=== PATIENT | male | born 1955 | race Caucasian/White ===

== ENCOUNTER 2024-01-21 08:43 | Inpatient (IN) ==
--- NOTE | 2024-01-21 08:53 | Emergency Department Note ---
Impression & Plan Diverticulitis of intestine with perforation and abscess, Lyme disease ED Provider Note Provider: Paulo Alfred MD DATE OF SERVICE: 01/21/2024 CHIEF COMPLAINT: Abdominal pain/back pain, fevers, tiredness HISTORY OF PRESENT ILLNESS: Patient is a 68-year-old gentleman history of hypertension hyperlipidemia presenting here today reporting over the past 2 weeks has been more tired. Yesterday developed some pain in the right lower quadrant of his abdomen worsening since yesterday. Has been having some mild or more chronic pain in his back as well as a low-grade fever and a mild headache on and off a week or 2. Urinary frequency overnight. No dysuria/burning. No trauma reported or syncope. Denies nausea vomiting or diarrhea. No significant chest pain or shortness of breath or URI symptoms otherwise reported. No rashes reported but has been out in the [place] around ticks. No leg swelling. No recent sick contact or travel. No history of similar abdominal discomfort. No history of abdominal surgeries. PAST MEDICAL HISTORY: As noted above MEDICATIONS: Reviewed home medication SOCIAL HISTORY: Non-smoker PHYSICAL EXAM: GENERAL: alert and oriented in no acute distress on stretcher Head: normocephalic and atraumatic EYES: No injection, discharge or icterus. NECK: Trachea midline. Supple with good range of motion ENT: Mucous membranes pink and moist. LUNGS: Airway patent. No retractions. Breath sounds clear with good air entry bilaterally. HEART: Regular rate and rhythm. No chest wall tenderness ABDOMEN: Soft with some localized right lower quadrant tenderness. No right upper tenderness or right flank tenderness or left-sided abdominal tenderness. SKIN: Acyanotic, warm, dry, without rashes EXTREMITIES: Without swelling, tenderness or deformity NEUROLOGICAL: No focal deficits. No aphasia. No facial droop or slurred speech. Ambulatory. EK bpm normal sinus rhythm. No PVC or PAC. No acute ST segment elevation or depression with a QTc of 444 CONTINUOUS CARDIAC MONITORING: was ordered and showed a heart rate of 70s to 80s bpm in normal sinus rhythm Patient's laboratory studies and imaging reviewed. Differential includes Appendicitis, testicular torsion, infections, diverticulitis, UTI, obstruction, mesenteric ischemia, aortic pathology, inflammatory bowel disease, renal colic, PUD, pancreatitis, biliary pathology, hernia, volvulus, constipation, as well as other pathologies. IMPRESSION/MEDICAL DECISION MAKING: Patient well-appearing. No neurological deficits on exam. Some urinary frequency developing overnight that is new with worsening pain just since yesterday in the right lower quadrant. Nontender to the left side or in the right upper quadrant or in the flank. Question possible urinary source was appendicitis or other GI issue. Does not seem severe and left flank like a kidney stone. Not having nausea vomiting or diarrhea. Does have outdoor tick exposures and will complete Lyme and tickborne testing per 's request which seems reasonable. Does not appear meningitic. Blood work here without significant anemia or thrombocytopenia but a leukocytosis of 16. No significant lecture light abnormalities signs of renal dysfunction. No evidence of hepatitis. Troponin normal. Doubt ACS. Negative blood smear for anaplasmosis. Urinalysis negative for signs of infection or blood. CT abdomen pelvis concerning for acute diverticulitis with small pneumoperitoneum and sub-2 cm abscess not amenable to drainage. Discussed with the patient. Does not have a reported history of diverticulitis to his knowledge. Will cover with Zosyn for this and given the possibility of Lyme disease covered with a dose of doxycycline discussion with pharmacist. Discussed with the surgical team here will evaluate as well as the hospitalist team and will bring the patient in the hospital. Patient well-appearing and not septic appearing and not peritoneal. DIAGNOSIS: Perforated diverticulitis with abscess, positive Lyme's test DISPOSITION: Hospitalist will evaluate Patient was agreeable with this plan. Past Med/Surg History Problem List (Updated 01/21/24 @ 14:47 by Paulo Alfred M.D.) Diverticulitis of intestine with perforation and abscess (Acute) Hyperlipidemia Lyme disease (Acute) Acute diverticulitis of intestine HTN (hypertension) BPH (benign prostatic hyperplasia) Medical History (Updated 01/21/24 @ 14:47 by Paulo Alfred M.D.) Osteoarthritis Surgical History History of colonoscopy History of tooth extraction wisdom teeth History of tonsillectomy Hx of detached retina repair Left History of bilateral cataract extraction Family History (Updated 01/21/24 @ 13:57 by Annita Diallo PA-C) Other Hypertension Social History Smoking Status: Never smoker Second Hand Exposure: Yes (father smoked); Do You Dip or Chew Tobacco: No; Hx Alcohol Use: Yes Alcohol type: beer and wine Hx Substance Use: No Preferred Language: Serbian Communication Ability: Effective 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 Beliefs That Will Affect Care: None Current Living Situation: Spouse Feels Safe at Home: Yes Assistive Devices: Glasses Allergies Allergies Allergy/AdvReac Type Severity Reaction Status Date / Time No Known Allergies Allergy Verified 01/21/24 09:57 Home Meds Home Medications Medication Instructions Recorded Confirmed fluticasone propionate 50 2 spray intranasal QAM 06/27/18 01/21/24 mcg/actuation nasal spray,suspension (Flonase Allergy Relief) sildenafil 50 mg tablet (Viagra) 50 mg PO DAILY PRN Sexual Activity 06/27/18 01/21/24 brimonidine 0.2 %-timolol 0.5 % 1 drp OPB BID 01/21/24 01/21/24 eye drops finasteride 5 mg tablet 5 mg PO DAILY 01/21/24 01/21/24 latanoprost 0.005 % eye drops 1 drp OPB HS 01/21/24 01/21/24 losartan 25 mg tablet 25 mg PO DAILY 01/21/24 01/21/24 rosuvastatin 5 mg tablet 5 mg PO DAILY 01/21/24 01/21/24 tamsulosin 0.4 mg capsule 0.8 mg PO QAM 01/21/24 01/21/24 Results & Data (ED) Vital Signs Vital Signs - 24 hr 01/21/24 08:46 01/21/24 09:22 01/21/24 09:23 Temperature 36.4 C L Temperature Source Temporal Artery Scan Pulse Rate 86 77 Pulse Rate [Apical] 78 Respiratory Rate 18 18 18 Respiratory Effort / Characteristics Non-Labored Spontaneous Respiratory Depth Normal Blood Pressure 157/92 H Blood Pressure [Right Arm] 142/88 H Blood Pressure Mean 113 Blood Pressure Mean [Right Arm] 106 Blood Pressure Position [Right Arm] Semi-fowlers Pulse Oximetry 98 96 97 Oxygen Delivery Method Room Air Room Air Room Air Sepsis Recent Fever Within 48 Hours Yes Sepsis New/Unexplained Change in Mental Status No Sepsis Action Taken by Nursing No Action Required 01/21/24 09:24 01/21/24 11:00 01/21/24 13:00 Temperature Temperature Source Pulse Rate 81 Pulse Rate [Apical] 76 78 Respiratory Rate 17 17 Respiratory Effort / Characteristics Non-Labored Spontaneous Non-Labored Respiratory Depth Normal Normal Blood Pressure Blood Pressure [Right Arm] 180/104 H 169/95 H Blood Pressure Mean Blood Pressure Mean [Right Arm] 129 119 Blood Pressure Position [Right Arm] Semi-fowlers Semi-fowlers Pulse Oximetry 96 94 Oxygen Delivery Method Room Air Room Air Sepsis Recent Fever Within 48 Hours Sepsis New/Unexplained Change in Mental Status Sepsis Action Taken by Nursing Laboratory Data 01/21/24 09:17 01/21/24 09:17 Lab Results 01/21/24 01/21/24 01/21/24 Range/Units 09:17 10:16 10:19 WBC 16.02 H (4.8-10.8) K/ul RBC 4.72 (4.70-6.10) M/uL Hgb 13.6 L (14.0-18.0) g/dl Hct 42.1 (42.0-52.0) % MCV 89.2 (80.0-100.0) fL MCH 28.8 (25.0-34.0) pg MCHC 32.3 (32.0-36.0) g/dL RDW Std Deviation 45.8 (36.4-46.3) fL RDW Coeff of Harman 14.1 (11.5-14.5) % Plt Count 435 H (130-400) K/uL MPV 9.1 L (9.4-12.4) fL Immature Gran % (Auto) 0.7 % Neut % (Auto) 85.4 % Lymph % (Auto) 8.9 % Gibson % (Auto) 4.6 % Eos % (Auto) 0.2 % Baso % (Auto) 0.2 % Neut # (Auto) 13.68 H (1.40-6.50) K/uL Lymph # (Auto) 1.42 (1.20-3.40) K/uL Gibson # (Auto) 0.73 H (0.11-0.59) K/uL Eos # (Auto) 0.03 (0.00-0.50) K/uL Baso # (Auto) 0.04 (0.00-0.20) K/uL Immature Gran # (Auto) 0.12 (0.01-0.20) K/uL Sodium 139 (136-145) mmol/L Potassium 3.8 (3.5-5.1) mmol/L Chloride 105 (98-107) mmol/L Carbon Dioxide 28 (21-32) mmol/L Anion Gap 6 (3-11) BUN 12 (6-23) mg/dl Creatinine 1.01 (0.6-1.4) mg/dl Est Cr Clr Drug Dosing 66.6 ml/min Est GFR ( Amer) 86.9 ml/min Est GFR (Non-Af Amer) 75.0 ml/min BUN/Creatinine Ratio 11.9 (10-20) Glucose 106 H (70-99(Fasting)) mg/dl Calcium 8.9 (8.6-10.3) mg/dl Magnesium 1.9 (1.7-2.4) mg/dl Total Bilirubin 1.5 H (0.2-1.0) mg/dl AST 20 (13-39) U/L ALT 28 (7-52) U/L Alkaline Phosphatase 57 (34-104) U/L Troponin I High Sens 5.4 (0-20) pg/ml Total Protein 6.7 (6.0-8.3) gm/dl Albumin 4.1 (3.4-5.0) gm/dl Globulin 2.6 (2.5-4.0) gm/dl Albumin/Globulin Ratio 1.6 (0.9-2) TSH 1.457 (0.300-4.500) uIu/ml Urine Color Yellow Urine Appearance Clear (Clear) Urine pH 8.5 H (4.5-7.5) Ur Specific [place] 1.016 (1.000-1.030) Urine Protein Negative (Negative) Urine Glucose (UA) Negative (Negative) Urine Ketones Negative (Negative) Urine Blood Negative (Negative) Urine Nitrite Negative (Negative) Urine Bilirubin Negative (Negative) Urine Urobilinogen Negative (Negative) Ur Leukocyte Esterase Negative (Negative) Anaplasma Smear See Comment Babesia Smear See Comment Lyme Disease Screen Positive H (Negative) Lyme Disease IgG Ab Positive H (Negative) Lyme Disease IgM Ab Positive H (Negative) SARS-CoV-2, RNA, NAAT NEGATIVE (NEGATIVE) Administered Medications Discontinued Medications Sodium Chloride (Nss) 500 mls @ 999 mls/hr IV .Q31M DELL Stop: 01/21/24 09:30 Last Infusion: 01/21/24 09:57 Dose: Infused Documented By: Admin: 01/21/24 09:13 Dose: 999 mls/hr Documented By: ONEIL Piperacillin Sod/Tazobactam Sod (Zosyn) 4.5 gm in 100 mls @ 200 mls/hr IV NOW ONE Stop: 01/21/24 12:35 Last Infusion: 01/21/24 13:24 Dose: Infused Documented By: Admin: 01/21/24 12:24 Dose: 200 mls/hr Documented By: ONEIL Ioversol (Optiray 320 100ml) 94 ml IV ONCE ONE Stop: 01/21/24 10:52 Last Admin: 01/21/24 10:51 Dose: 94 ml Documented By: EDK Imaging Data Radiologist's Impression: Abdomen/Pelvis CT 01/21/24 08:[address] WITH IV CONTRAST CT DOSE: 1230.06 mGy.cm HISTORY: RLQ pain, urinary symptoms, fatigue TECHNIQUE: Multiaxial CT images of the abdomen and pelvis were performed following the use of intravenous contrast. A dose lowering technique was utilized adhering to the principles of ALARA. COMPARISON STUDY: None. FINDINGS: There are trace bilateral pleural effusions. Bibasilar linear densities favor subsegmental atelectasis. There are few punctate foci of pneumoperitoneum within the left subdiaphragmatic location. Therefore, this is consistent with a bowel perforation. This is secondary to the acute diverticulitis at the mid sigmoid colon. This is demonstrated by focal thickening within the mid sigmoid colon with pericolonic fat stranding and a 1.8 cm pericolonic abscess best seen image 228. There is a punctate focus of extraluminal gas also adjacent to the mid sigmoid colon consistent with the area of perforation. No evidence for bowel obstruction. Normal appendix. Small hiatus hernia. Multiple scattered hypodense lesions seen throughout the liver measuring approximately 4.7 cm. These likely represent cysts. The spleen, adrenal glands, pancreas, and gallbladder are unremarkable. There are few small bilateral renal hypodense lesions with the majority of these measure subcentimeter in short axis diameter. Therefore, these are detected too small to characterize but statistically represent cysts. There is a punctate nonobstructing stone within the left kidney. No ureteral stones. No hydronephrosis. 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 The main portal vein is patent. Calcified plaque within the normal caliber abdominal aorta. No retroperitoneal or pelvic lymphadenopathy. No pelvic free fluid. The prostate gland is mildly enlarged. Normal bladder. IMPRESSION: 1. Perforated acute sigmoid diverticulitis demonstrated by trace pneumoperitoneum. There is an associated 1.8 cm pericolonic abscess at the mid sigmoid colon. This is not amenable to percutaneous drainage due to its small size. Surgical consultation recommended. 2. Trace bilateral pleural effusions. 3. Left-sided nephrolithiasis. No hydronephrosis. 4. 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 5. Additional findings as described above. ACT 112: Negative or not required by law. Electronically signed by: Stan Romero M.D. 01/21/2024 11:52 AM Discharge Plan Visit Data Chief Complaint: Illness Stated Complaint: side and back pain, fever ED Provider: Paulo Alfred Discharge Problem: Diverticulitis of intestine with perforation and abscess, Lyme disease Patient Disposition: Being Evaluated by Hospitalist Forms Stand Alone Forms: [employer] Prescriptions Prescriptions: No Action sildenafil [Viagra] 50 mg Tablet 50 mg PO DAILY PRN (Reason: Sexual Activity) fluticasone propionate [Flonase Allergy Relief] 50 mcg/actuation [place],Suspension 2 spray INTRANASAL QAM latanoprost 0.005 % drops 1 drp OPB HS tamsulosin 0.4 mg capsule 0.8 mg PO QAM losartan 25 mg tablet 25 mg PO DAILY rosuvastatin 5 mg tablet 5 mg PO DAILY brimonidine-timolol 0.2-0.5 % drops 1 drp OPB BID finasteride 5 mg tablet 5 mg PO DAILY Referrals Referrals: Marko Ennis MD [Primary Care Provider] - Discharge Problem: Diverticulitis of intestine with perforation and abscess Qualifiers: Diverticulitis site: large intestine Diverticulitis bleeding: without bleeding Qualified Code(s): K57.20 - Diverticulitis of large intestine with perforation and abscess without bleeding
[2024-01-21] MEDS: SODIUM CHLORIDE 0.9% 500 ML IV SCH (09:13)
[2024-01-21 09:40] LABS: Basophils # (auto) 0.04 K/uL (0.00-0.20); Basophils % (auto) 0.2 %; Eosinophils # (auto) 0.03 K/uL (0.00-0.50); Eosinophils % (auto) 0.2 %; Hematocrit (blood only) 42.1 % (42.0-52.0); Hemoglobin 13.6 g/dl (14.0-18.0); Immature Granulocytes # (auto) 0.12 K/uL (0.01-0.20); Immature Granulocytes % (auto) 0.7 %; Lymphocytes # (auto) 1.42 K/uL (1.20-3.40); Lymphocytes % (auto) 8.9 %; Mean Corpuscular Hemoglobin 28.8 pg (25.0-34.0); Mean Corpuscular Hgb Conc 32.3 g/dL (32.0-36.0); Mean Corpuscular Volume 89.2 fL (80.0-100.0); Mean Platelet Volume 9.1 fL (9.4-12.4); Monocytes # (auto) 0.73 K/uL (0.11-0.59); Monocytes % (auto) 4.6 %; Neutrophils # (auto) 13.68 K/uL (1.40-6.50); Neutrophils % (auto) 85.4 %; Platelet Count 435 K/uL (130-400); RDW Coefficient of Variation 14.1 % (11.5-14.5); RDW Standard Deviation 45.8 fL (36.4-46.3); Red Blood Count 4.72 M/uL (4.70-6.10); White Blood Count 16.02 K/ul (4.8-10.8)
[2024-01-21 09:57] LABS: Albumin Globulin Ratio 1.6 (0.9-2); Albumin Level 4.1 gm/dl (3.4-5.0); BUN Creatinine Ratio 11.9 (10-20); Bilirubin,Total 1.5 mg/dl (0.2-1.0); Calcium 8.9 mg/dl (8.6-10.3); Creatinine Clr Calc Pharmacy 66.6 ml/min; Est GFR (African American) 86.9 ml/min; Globulin 2.6 gm/dl (2.5-4.0); Magnesium 1.9 mg/dl (1.7-2.4); Potassium 3.8 mmol/L (3.5-5.1); Total Protein 6.7 gm/dl (6.0-8.3)
[2024-01-21 10:03] LABS: Troponin I High Sensitivity 5.4 pg/ml (0-20)
[2024-01-21 10:11] LABS: Thyroid Stimulating Hormone 1.457 uIu/ml (0.300-4.500)
[2024-01-21 10:25] LABS: Appearance Urine Clear (Clear); Bilirubin Urine Negative (Negative); Blood Urine Negative (Negative); Color Urine Yellow; Glucose Urine UA Negative (Negative); Ketones Urine Negative (Negative); Leukocyte Esterase Urine Negative (Negative); Nitrite Urine Negative (Negative); Protein Urine Negative (Negative); Specific Gravity Urine 1.016 (1.000-1.030); Urobilinogen Urine Negative (Negative); pH Urine 8.5 (4.5-7.5)
[2024-01-21 10:34] LABS: Lyme Screen Rflx Confirmation Positive (Negative)
[2024-01-21] MEDS: OPTIRAY 320 100ml IV ONE (10:51)
[2024-01-21 11:08] LABS: Lyme Ab IgG 2nd Tier Confirm Positive (Negative); Lyme Ab IgM 2nd Tier Confirm Positive (Negative)
--- NOTE | 2024-01-21 11:55 | CT Scan Report ---
ABDOMEN AND PELVIS CT WITH IV CONTRAST CT DOSE: 1230.06 mGy.cm HISTORY: RLQ pain, urinary symptoms, fatigue TECHNIQUE: Multiaxial CT images of the abdomen and pelvis were performed following the use of intrave nous contrast. A dose lowering technique was utilized adhering to the principles of ALARA. COMPARISON STUDY: None. FINDINGS: There are trace bilateral pleural effusions. Bibasilar linear densities favor subsegmental atelectasis. There are few punctate foci of pneumoperitoneum within the left subdiaphragmatic locatio n. Therefore, this is consistent with a bowel perforation. This is secondary to the acute diverticuli tis at the mid sigmoid colon. This is demonstrated by focal thickening within the mid sigmoid colon w ith pericolonic fat stranding and a 1.8 cm pericolonic abscess best seen image 228. There is a puncta te focus of extraluminal gas also adjacent to the mid sigmoid colon consistent with the area of perfo ration. No evidence for bowel obstruction. Normal appendix. Small hiatus hernia. Multiple scattered h ypodense lesions seen throughout the liver measuring approximately 4.7 cm. These likely represent cys ts. The spleen, adrenal glands, pancreas, and gallbladder are unremarkable. There are few small bilat eral renal hypodense lesions with the majority of these measure subcentimeter in short axis diameter. Therefore, these are detected too small to characterize but statistically represent cysts. There is a punctate nonobstructing stone within the left kidney. No ureteral stones. No hydronephrosis. 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 The main port al vein is patent. Calcified plaque within the normal caliber abdominal aorta. No retroperitoneal or pelvic lymphadenopathy. No pelvic free fluid. The prostate gland is mildly enlarged. Normal bladder. IMPRESSION: 1. Perforated acute sigmoid diverticulitis demonstrated by trace pneumoperitoneum. There is an associ ated 1.8 cm pericolonic abscess at the mid sigmoid colon. This is not amenable to percutaneous draina ge due to its small size. Surgical consultation recommended. 2. Trace bilateral pleural effusions. 3. Left-sided nephrolithiasis. No hydronephrosis. 4. 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 5. Additional findings as described above. ACT 112: Negative or not required by law. Electronically signed by: Stan Romero M.D. 01/21/2024 11:52 AM
[2024-01-21] MEDS: PIPERACILLIN/TAZOBACTAM 4.5 GM/100 ML BAG IV ONE (12:24)
--- NOTE | 2024-01-21 12:29 | Electrocardiogram Report ---
Test Reason : Blood Pressure : / mmHG Vent. Rate : 079 BPM Atrial Rate : 079 BPM P-R Int : 154 ms QRS Dur : 084 ms QT Int : 388 ms P-R-T Axes : 044 -24 026 degrees QTc Int : 444 ms Normal sinus rhythm Normal ECG No previous ECGs available Confirmed by Mateo Blanco ([id number]) on 01/21/2024 12:29:37 PM Referred By: Confirmed By:Mateo Blanco
--- NOTE | 2024-01-21 13:13 | History & Physical Report ---
Date of Service January 21, 2024 Assessment & Plan (1) Acute diverticulitis of intestine: Plan: This is a 68-year-old male with PMH of hypertension, BPH, thrombocytosis, hyperlipidemia, prediabetes and other medical problems listed below who presents with lower abdominal pain x 2 days and found to have acute sigmoid diverticulitis with pericolonic abscess as well as lyme disease. Afebrile, leukocytosis 16K CT abd/pelvis with perforated acute sigmoid diverticulitis demonstrated by trace pneumoperitoneum. There is an associated 1.8 cm pericolonic abscess at the mid sigmoid colon. This is not amenable to percutaneous drainage due to its small size. Surgical consultation recommended Continue empiric Zosyn Gentle fluids Pain control with scheduled IV Tylenol, PRN Dilaudid for severe breakthrough pain Gen surg - continue conservative mgmt with IV abx for now, keep NPO with ice chips (2) Lyme disease: Plan: Lyme IgG, IgM positive, started on IV Doxycycline treatment today (01/20) (3) HTN (hypertension): Plan: Hold losartan while NPO. Scheduled IV Enalapril Q6H, PRN IV hydralazine (4) BPH (benign prostatic hyperplasia): Plan: Holding PO tamsulosin and finasteride, bladder scan Q shift (5) Hyperlipidemia: Plan: Continue statin when PO DVT Ppx: SCDs Code status: FULL PCP: Raymon Dispo: med tele Patient seen in collaboration with Dr. Khan. Please see addendum. I spent a total of 75 minutes coordinating, documenting, and providing care for this patient excluding time spent in the performance of separately billed services. History of Present Illness Chief Complaint: Abdominal pain Primary Care Provider: Marko Ennis MD This is a 68-year-old male with PMH of hypertension, BPH, thrombocytosis, hyperlipidemia, prediabetes and other medical problems listed below who presents with lower abdominal pain x 2 days. Abdominal pain is described as right lower quadrant pain that is dull and worse with movement. Denies any associated nausea, vomiting or diarrhea. Endorses normal appetite and bowel movements. No melena or hematochezia. [place] very chilled during [employer] game yesterday and had to leave early, prompting concern for his health and evaluation in the ED today. Also endorses feeling fatigued for 2 weeks with dull headache. Denies any rash or joint pain. Lives in in a [facility]. Denies any known tick bites or rash. No recent medication changes. No chest pain, shortness of breath, dysuria. Allergies Allergy/AdvReac Type Severity Reaction Status Date / Time No Known Allergies Allergy Verified 01/21/24 09:57 Home Medications Medication Instructions Recorded Confirmed Type fluticasone propionate 50 2 spray intranasal QAM 06/27/18 01/21/24 History mcg/actuation nasal spray,suspension (Flonase Allergy Relief) sildenafil 50 mg tablet (Viagra) 50 mg PO DAILY PRN Sexual Activity 06/27/18 01/21/24 History brimonidine 0.2 %-timolol 0.5 % 1 drp OPB BID 01/21/24 01/21/24 History eye drops finasteride 5 mg tablet 5 mg PO DAILY 01/21/24 01/21/24 History latanoprost 0.005 % eye drops 1 drp OPB HS 01/21/24 01/21/24 History losartan 25 mg tablet 25 mg PO DAILY 01/21/24 01/21/24 History rosuvastatin 5 mg tablet 5 mg PO DAILY 01/21/24 01/21/24 History tamsulosin 0.4 mg capsule 0.8 mg PO QAM 01/21/24 01/21/24 History Past Med/Surg History Problem List Diverticulitis of intestine with perforation and abscess (Acute) Hyperlipidemia Lyme disease (Acute) Acute diverticulitis of intestine HTN (hypertension) BPH (benign prostatic hyperplasia) Medical History Osteoarthritis Surgical History History of colonoscopy History of tooth extraction wisdom teeth History of tonsillectomy Hx of detached retina repair Left History of bilateral cataract extraction Family History Other Hypertension Social History Smoking Status: Never smoker Second Hand Exposure: Yes (father smoked); Do You Dip or Chew Tobacco: No; Hx Alcohol Use: Yes Alcohol type: beer and wine Hx Substance Use: No Preferred Language: Pakistani Communication Ability: Effective Architectural Draftsman Required: No Beliefs That Will Affect Care: None Current Living Situation: Spouse Feels Safe at Home: Yes Assistive Devices: None Review of Systems Review of Systems: At least ten systems reviewed and negative except as noted in the HPI. Physical Exam Physical Exam: General Appearance: WD/WN, vitals as above, NAD, sitting up in bed, pleasant, conversing easily Head: normocephalic, atraumatic Eyes: normal inspection, PERRL, conjunctivae normal, anicteric sclerae ENT: external ear and nose normal, oropharynx normal Neck: normal visual inspection, trachea midline, no thyromegaly Respiratory: normal respiratory effort, lungs clear to auscultation, no wheeze, rales, rhonchi. No accessory muscle use Cardiovascular: regular rate, rhythm, no murmur, normal peripheral pulses, no BLE edema. Vessels: no JVD Chest: normal inspection of chest Abdomen/GI: normal bowel sounds, soft, TTP throughout abdomen most significant in RLQ, mildly distended Extremities/Musculoskeletal: no cyanosis or clubbing, extremities motor strength 5/5 Neurologic: PERRL, EOMI, accommodation nl, no face palsy, no dysarthria, CN's II-XI intact bilaterally and moves all extremities Psychiatric: A+Ox3, euthymic affect Skin: no rashes, normal color, warm/dry Results & Data Results & Data Vital Signs (Past 12 Hours) Vital Signs Temp Pulse Pulse Resp BP BP Pulse Ox 01/21/24 13:00 78 17 169/95 H 94 01/21/24 11:00 76 17 180/104 H 96 01/21/24 09:24 81 01/21/24 09:23 78 18 142/88 H 97 01/21/24 09:22 77 18 96 01/21/24 08:46 36.4 C L 86 18 157/92 H 98 O2 Del Method 01/21/24 13:00 Room Air 01/21/24 11:00 Room Air 01/21/24 09:24 01/21/24 09:23 Room Air 01/21/24 09:22 Room Air 01/21/24 08:46 Room Air Laboratory Results Short CBC 01/21/24 Range/Units 09:17 WBC 16.02 H (4.8-10.8) K/ul Hgb 13.6 L (14.0-18.0) g/dl Hct 42.1 (42.0-52.0) % Plt Count 435 H (130-400) K/uL BMP 01/21/24 09:17 Sodium 139 Potassium 3.8 Chloride 105 Carbon Dioxide 28 BUN 12 Creatinine 1.01 Glucose 106 H Calcium 8.9 Liver Function 01/21/24 Range/Units 09:17 Total Bilirubin 1.5 H (0.2-1.0) mg/dl AST 20 (13-39) U/L ALT 28 (7-52) U/L Alkaline Phosphatase 57 (34-104) U/L Albumin 4.1 (3.4-5.0) gm/dl Urine 01/21/24 Range/Units 10:16 Urine Color Yellow Urine Appearance Clear (Clear) Urine pH 8.5 H (4.5-7.5) Ur Specific Vale 1.016 (1.000-1.030) Urine Protein Negative (Negative) Urine Glucose (UA) Negative (Negative) Diagnostic Findings Abdomen/Pelvis CT 01/21/24 08:[address] WITH IV CONTRAST CT DOSE: 1230.06 mGy.cm HISTORY: RLQ pain, urinary symptoms, fatigue TECHNIQUE: Multiaxial CT images of the abdomen and pelvis were performed following the use of intravenous contrast. A dose lowering technique was utilized adhering to the principles of ALARA. COMPARISON STUDY: None. FINDINGS: There are trace bilateral pleural effusions. Bibasilar linear densities favor subsegmental atelectasis. There are few punctate foci of pneumoperitoneum within the left subdiaphragmatic location. Therefore, this is consistent with a bowel perforation. This is secondary to the acute diverticulitis at the mid sigmoid colon. This is demonstrated by focal thickening within the mid sigmoid colon with pericolonic fat stranding and a 1.8 cm pericolonic abscess best seen image 228. There is a punctate focus of extraluminal gas also adjacent to the mid sigmoid colon consistent with the area of perforation. No evidence for bowel obstruction. Normal appendix. Small hiatus hernia. Multiple scattered hypodense lesions seen throughout the liver measuring approximately 4.7 cm. These likely represent cysts. The spleen, adrenal glands, pancreas, and gallbladder are unremarkable. There are few small bilateral renal hypodense lesions with the majority of these measure subcentimeter in short axis diameter. Therefore, these are detected too small to characterize but statistically represent cysts. There is a punctate nonobstructing stone within the left kidney. No ureteral stones. No hydronephrosis. 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 The main portal vein is patent. Calcified plaque within the normal caliber abdominal aorta. No retroperitoneal or pelvic lymphadenopathy. No pelvic free fluid. The prostate gland is mildly enlarged. Normal bladder. IMPRESSION: 1. Perforated acute sigmoid diverticulitis demonstrated by trace pneumoperitoneum. There is an associated 1.8 cm pericolonic abscess at the mid sigmoid colon. This is not amenable to percutaneous drainage due to its small size. Surgical consultation recommended. 2. Trace bilateral pleural effusions. 3. Left-sided nephrolithiasis. No hydronephrosis. 4. 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 5. Additional findings as described above. ACT 112: Negative or not required by law. Electronically signed by: Stan Romero M.D. 01/21/2024 11:52 AM Code Status & VTE Plan VTE Prophylaxis Plan VTE Prophylaxis will be ordered: Yes Supervising Physician Co-Signing Physician Notes delayed entry date of service noted above Attending Addendum: care coordinated in detail with GALEN Diallo please refer to her notes for full details, I agree with her notes patient seen and examined, records reviewed by myself as well Diagnoses and plan of care formulated with GALEN Diallo, please refer to her notes Sarbjit Khan MD
--- NOTE | 2024-01-21 14:39 | Surgery Consultation ---
<Statement entered by Kristine Yañez DO - 01/21/24 20:23> I have seen and examined this patient with the surgical PA. I agree with this plan. Date of Consultation January 21, 2024 Assessment & Plan (1) Diverticulitis of intestine with perforation and abscess: This is 68yM with a PMH of HTN, BPH, HLD, lyme's dz, who presents to the [facility] ED on 01/21/24 with complaints of abdominal pain that started yesterday. Due to worsening pain and symptoms he presented to our ER for further evaluation. A CT a/p was obtained that revealed perforated acute sigmoid diverticulitis demonstrated by trace pneumoperitoneum. There is an associated 1.8 cm pericolonic abscess at the mid sigmoid colon. This is not amenable to percutaneous drainage due to its small size. Patient reports a history of colonoscopy 4-5 years ago here. He was aware of having diverticulosis, but never had an episode of diverticulitis. No personal history of colon cancer. No prior abdominal surgical history. He reports + chills that started yesterday while at a [employer] game. Denies change in bowel habits/CP/SOB. Vital signs are stable outside of some hypertension. Labs show a WBC 16, Hbg 13. He is lyme disease positive. On exam abdomen is soft, mildly distended, with discomfort to palpation in the R mid and infra-umbilical regions. Agree with admission to the hospital for bowel rest, IVF, and to start IV abx. Abscess not amenable to IR drainage due to size. No plans for acute surgical intervention indicated at this time. Hopefully he will get by with supportive measures, few days in house of IV abx and complete a course of PO at home. Will recommend outpatient colonoscopy in 6-8 wks with Gi. Will follow closely. May have ice/sips of water for today, no further diet advancement at this time. History of Present Illness History of Present Illness This is 68yM with a PMH of HTN, BPH, HLD, lyme's dz, who presents to the [facility] ED on 01/21/24 with complaints of abdominal pain. He has been complaining of lower back pain, MONTOYA's and fatigue over the last few days and wanted to get checked out for lyme's. However as of yesterday Am he started developing abdominal pain in his abdomen. Due to worsening pain and symptoms he presented to our ER for further evaluation. A CT a/p was obtained that revealed perforated acute sigmoid diverticulitis demonstrated by trace pneumoperitoneum. There is an associated 1.8 cm pericolonic abscess at the mid sigmoid colon. This is not amenable to percutaneous drainage due to its small size. Patient reports a history of colonoscopy 4-5 years ago here. He was aware of having diverticulosis, but never had an episode of diverticulitis. No personal history of colon cancer. No prior abdominal surgical history. He reports + chills that started yesterday while at a [employer] game. Denies change in bowel habits/CP/SOB. Allergies Allergy/AdvReac Type Severity Reaction Status Date / Time No Known Allergies Allergy Verified 01/21/24 09:57 Home Medications Medication Instructions Recorded Confirmed Type fluticasone propionate 50 2 spray intranasal QAM 06/27/18 01/21/24 History mcg/actuation nasal spray,suspension (Flonase Allergy Relief) sildenafil 50 mg tablet (Viagra) 50 mg PO DAILY PRN Sexual Activity 06/27/18 0 01/21/24 History brimonidine 0.2 %-timolol 0.5 % 1 drp OPB BID 01/21/24 01/21/24 History eye drops finasteride 5 mg tablet 5 mg PO DAILY 01/21/24 01/21/24 History latanoprost 0.005 % eye drops 1 drp OPB HS 01/21/24 01/21/24 History losartan 25 mg tablet 25 mg PO DAILY 01/21/24 01/21/24 History rosuvastatin 5 mg tablet 5 mg PO DAILY 01/21/24 01/21/24 History tamsulosin 0.4 mg capsule 0.8 mg PO QAM 01/21/24 01/21/24 History Patient History Medical History Osteoarthritis Surgical History History of colonoscopy History of tooth extraction wisdom teeth History of tonsillectomy Hx of detached retina repair Left History of bilateral cataract extraction Family History Other Hypertension Social History Smoking Status: Never smoker Second Hand Exposure: Yes (father smoked); Do You Dip or Chew Tobacco: No; Hx Alcohol Use: Yes Alcohol type: beer and wine Hx Substance Use: No Preferred Language: [place] Communication Ability: Effective English Tutor Required: No Beliefs That Will Affect Care: None Current Living Situation: Spouse Feels Safe at Home: Yes Assistive Devices: Glasses Review of Systems Constitutional: + chills; no fever Respiratory: no dyspnea Cardiovascular: no chest pain Gastrointestinal: + abdominal pain; no nausea, no vomiting and no change in bowel habits Physical Exam Physical Exam: awake/alert, no distress Constitutional: well developed and well nourished; no acute distress Respiratory: normal respiratory effort Gastrointestinal (Abdomen): Inspection/Auscultation: + abdomen distended Percussion/Palpation: + abdomen tender (ttp in R mid abdomen and lower midline abdomen) and abdomen soft Results & Data Vital Signs (Past 12 Hours) Vital Signs Temp Pulse Pulse Resp BP BP Pulse Ox 01/21/24 13:00 78 17 169/95 H 94 01/21/24 11:00 76 17 180/104 H 96 01/21/24 09:24 81 01/21/24 09:23 78 18 142/88 H 97 01/21/24 09:22 77 18 96 01/21/24 08:46 97.5 F L 86 18 157/92 H 98 O2 Del Method 01/21/24 13:00 Room Air 01/21/24 11:00 Room Air 01/21/24 09:24 01/21/24 09:23 Room Air 01/21/24 09:22 Room Air 01/21/24 08:46 Room Air Diagnostic Findings ABDOMEN AND PELVIS CT WITH IV CONTRAST CT DOSE: 1230.06 mGy.cm HISTORY: RLQ pain, urinary symptoms, fatigue TECHNIQUE: Multiaxial CT images of the abdomen and pelvis were performed following the use of intravenous contrast. A dose lowering technique was utilized adhering to the principles of ALARA. COMPARISON STUDY: None. FINDINGS: There are trace bilateral pleural effusions. Bibasilar linear densities favor subsegmental atelectasis. There are few punctate foci of pneumoperitoneum within the left subdiaphragmatic location. Therefore, this is consistent with a bowel perforation. This is secondary to the acute diverticulitis at the mid sigmoid colon. This is demonstrated by focal thickening within the mid sigmoid colon with pericolonic fat stranding and a 1.8 cm pericolonic abscess best seen image 228. There is a punctate focus of extraluminal gas also adjacent to the mid sigmoid colon consistent with the area of perforation. No evidence for bowel obstruction. Normal appendix. Small hiatus hernia. Multiple scattered hypodense lesions seen throughout the liver measuring approximately 4.7 cm. These likely represent cysts. The spleen, adrenal glands, pancreas, and gallbladder are unremarkable. There are few small bilateral renal hypodense lesions with the majority of these measure subcentimeter in short axis diameter. Therefore, these are detected too small to characterize but statistically represent cysts. There is a punctate nonobstructing stone within the left kidney. No ureteral stones. No hydronephrosis. 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 The ma in portal vein is patent. Calcified plaque within the normal caliber abdominal aorta. No retroperitoneal or pelvic lymphadenopathy. No pelvic free fluid. The prostate gland is mildly enlarged. Normal bladder. IMPRESSION: 1. Perforated acute sigmoid diverticulitis demonstrated by trace pneumoperitoneum. There is an associated 1.8 cm pericolonic abscess at the mid sigmoid colon. This is not amenable to percutaneous drainage due to its small size. Surgical consultation recommended. 2. Trace bilateral pleural effusions. 3. Left-sided nephrolithiasis. No hydronephrosis. 4. 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 5. Additional findings as described above. ACT 112: Negative or not required by law. Electronically signed by: Stan Romero M.D. 01/21/2024 11:52 AM PG Care Time/CCT Total # of Minutes Spent Total Time Spent with Patient: Total time spent is greater than 50% in coordination of care (as documented) at patient's floor/unit and/or counseling patient: Coding Level of Care Code 19581 OFFICE CONSULT LVL Diagnoses Diverticulitis of intestine with perforation and abscess K57.20 Diverticulitis bleeding: without bleeding Diverticulitis site: large intestine (1) Diverticulitis of intestine with perforation and abscess Diverticulitis bleeding: without bleeding Diverticulitis site: large intestine Qualified Code(s): K57.20 - Diverticulitis of large intestine with perforation and abscess without bleeding
[2024-01-21] MEDS ORDERED: HYDROmorphone INJ 0.5 MG/0.5 ML SYR IV PRN (15:45)
[2024-01-21] MEDS: DOXYCYCLINE HYCLATE 100 MG in DEXTROSE 5% MINI-B 100 ML IV STA (15:56)
[2024-01-21] MEDS: ACETAMINOPHEN 1,000 MG/100 ML VIAL IV SCH (16:17)
[2024-01-21] MEDS: ENALAPRILAT 1.25 MG in DEXTROSE 5% 25 ML IV SCH (16:31)
[2024-01-21] MEDS: LACTATED RINGER'S 1,000 ML IV SCH (16:46)
[2024-01-21] MEDS ORDERED: ONDANSETRON INJ 2 MG/ML 2 ML VIAL IV PRN (18:39)
[2024-01-21] MEDS ORDERED: hydrALAZINE HCL 20 MG/ML VIAL IV PRN (18:39)
[2024-01-21] MEDS ORDERED: POLYETHYLENE (MIRALAX) 17 GM PACK PO PRN (18:39)
[2024-01-21] MEDS: PIPERACILLIN/TAZOBACTAM 4.5 GM in DEXTROSE 5% MINI-B 100 ML IV SCH (20:08)
[2024-01-21] MEDS: LATANOPROST 0.005% OP SOLN 2.5 ML BTL OPB SCH (22:46)
[2024-01-22] MEDS: DOXYCYCLINE HYCLATE 100 MG in DEXTROSE 5% MINI-B 100 ML IV SCH (03:26)
[2024-01-22 06:48] LABS: Hematocrit (blood only) 36.9 % (42.0-52.0); Hemoglobin 12.3 g/dl (14.0-18.0); Mean Corpuscular Hemoglobin 29.9 pg (25.0-34.0); Mean Corpuscular Hgb Conc 33.3 g/dL (32.0-36.0); Mean Corpuscular Volume 89.6 fL (80.0-100.0); Mean Platelet Volume 9.4 fL (9.4-12.4); Platelet Count 403 K/uL (130-400); RDW Coefficient of Variation 14.1 % (11.5-14.5); RDW Standard Deviation 46.1 fL (36.4-46.3); Red Blood Count 4.12 M/uL (4.70-6.10); White Blood Count 12.12 K/ul (4.8-10.8)
[2024-01-22] MEDS: FLUTICASONE PROPIONATE NA SPR 16 GM BTL SCH (08:08)
[2024-01-22 08:11] LABS: Albumin Globulin Ratio 1.4 (0.9-2); Albumin Level 3.6 gm/dl (3.4-5.0); BUN Creatinine Ratio 10.9 (10-20); Bilirubin,Total 1.4 mg/dl (0.2-1.0); Calcium 8.5 mg/dl (8.6-10.3); Creatinine Clr Calc Pharmacy 73.1 ml/min; Est GFR (African American) 97.3 ml/min; Globulin 2.6 gm/dl (2.5-4.0); Potassium 3.5 mmol/L (3.5-5.1); Total Protein 6.2 gm/dl (6.0-8.3)
--- OUTSIDE RECORDS SUMMARY | 2024-01-22 08:39 | External Medical Summary | Summary of Care ---
Author Name Unknown Organization [facility] [address] [facility] [address] Phone [phone] Care Team Providers Care Coal Weigher Name Role Phone Marko Ennis MD Primary Care Provider + Encounter Details Date Type Department Care Team (Late st Contact Info) Description 11/01/2023 Orders Only PATIENT PORTAL DO NOT DELETE THIS DEPT USED BY [facility] [id number] Allergies No known active allergiesdocumented as of this encounter (statuses as of 11/01/2023) Medications Medication Sig Dispensed Refills Start Date End Date Status Sildenafil Citrate 100 MG Oral TabletIndications:Im potence of organic origin Take 1/2 tablet by mouth 1-4 hours before intercourse, no more than 1 dose in 24 hours 10 Tablet 4 11/13/2022 Active Brimonidine Tartrate-Timolol 0.2-0.5 % Ophthalmic Solution (Combigan) 1 drop in both eyes in morning & 1 drop in both eyes in evening 0 11/28/2022 Active Fluticasone Propionate 50 MCG/ACT Nasal Suspension (Flonase)Indications :Allergic rhinitis due to pollen Administer 2 Sprays into each nostril daily. 48 mL 3 05/26/2023 Active Tamsulosin HCl 0.4 MG Oral Capsule (Flomax)Indications: Hypertension goal BP (blood pressure) < 140/90,BPH with obstruction/lower urinary tract symptoms TAKE 2 CAPSULES IN THE MORNING 180 Capsule 3 08/20/2023 Active Losartan Potassium 25 MG Oral Tablet (Cozaar)Indications: Hypertension goal BP (blood pressure) < 140/90 TAKE 1 TABLET IN THE MORNING 90 Tablet 3 08/20/2023 Active Rosuvastatin Calcium 5 MG Oral Tablet (Crestor)Indications :Mixed hyperlipidemia TAKE 1 TABLET IN THE MORNING 90 Tablet 3 08/20/2023 Active documented as of this encounter (statuses as of 11/01/2023) Active Problems Problem Noted Date Diagnosed Date Prediabetes 07/23/2022 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/08/2020 Hypertension goal BP (blood pressure) < 140/90 1 08/31/2019 Thrombocytosis 09/08/2019 Mixed hyperlipidemia 02/20/2019 Elevated glucose 02/20/2019 Other male erectile dysfunction 03/03/2018 Epiretinal membrane (ERM) of left eye 07/30/2016 Overview: ICD-10 update of inactive term Allergic rhinitis 05/15/2010 documented as of this encounter (statuses as of 11/01/2023) Resolved Problems Problem Noted Date Diagnosed Date Resolved Date 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/2023 Retina disorder 07/06/2016 06/17/2018 Retinal detachment with retinal defect 07/06/2016 12/08/2018 Diverticulosis of colon 05/15/2010 07/0 08/2018 Impotence of organic origin 05/15/2010 04/08/2016 documented as of this encounter (statuses as of 11/01/2023) Immunizations Name Administration Dates Next Due COVID-19 mRNA, LNP-s, No Pre serve, 2-Dose Series (Moderna) 10/21/2020,09/17/2020 COVID-19, MRNA-LNP, 23-24, P F, 30 MCG/0.3 mL, 12 YRS AND ABOVE, IM (PFIZER-Comirnaty) 06/14/2023 COVID-19, mRNA, LNP-s, PF, B ooster, 100mcg/0.5mg (Moderna) 06/25/2021 Covid-19, Mrna, Lnp-s, Pf, B ivalent, 30 Mcg, IM, 12 yrs and above (Pfizer) 07/01/2022 Pneumococcal Conjugate Vacc, 13 Valent (Prevnar) 06/17/2018 Pneumococcal Polysaccharide PPV23 (Pneumovax) 06/28/2019 RSV Vac., Bivalent, Perfusio n F, Pf,0.5 Ml (Abrysvo) 07/13/2023 Season Influenza, Quad, PF, Adjuvanted, 65+ Yrs, IM (FLUAD) 05/30/2020 Seasonal Influenza, PF, 6 M & above, IM , (FluLaval or Fluzone) 06/17/2018,05/24/2017 Seasonal Influenza, Quadriva lent Hd (Fluzone Hd) 06/02/2023,05/12/2022,05/16/2021 Seasonal Influenza, Quadriva lent, No Preserve, IM 07/15/2016,06/25/2015 Seasonal Influenza, Split, I IV3, With Preserve, Inj 06/26/2014,05/26/2013,05/02/2012,07/05,07/07/2010 Seasonal Influenza, Trivalen t, Adjuvanted, 65+ yrs 06/28/2019 TDAP (age 10 and older)(Boostrix) 05/24/2017 TDAP (age 11 and older)(Adacel) 06/01/2007 Varicella Zoster Vaccine (Adult) 11/30/2013 Zoster Vaccine Recombinant (Shingrix) 09/11/2019 ,07/11/2019 documented as of this encounter Social History Tobacco Use Types Packs/Day Years Used Date Smoking Tobacco: Never Smokeless Tobacco: Never Alcohol Use Standard Drinks/Week Comments Yes 5.8 (1 standard drink = 0.6 oz p ure alcohol) wine PHQ-2 Answer Date Recorded PHQ Adult Total Score 0 07/13/2023 Hunger Vital Sign Answer Date Recorded Within the past 12 months, y ou worried that your food would run out before you got the money to buy more. Never true 01/26/20 23 Within the past 12 months, t he food you bought just didn't last and you didn't have money to get more. Never true 01/25/2023 Sex and Gender Information Value Date Recorded Sex Assigned at Male 02/20/2019 11:57 AM EDT Gender Identity Male 02/20/2019 11:57 AM EDT Sexual Orientation Straight 02/20/2019 11 :57 AM EDT Job Start Date Occupation Industry Not on file Not on file Not on file documented as of this encounter Plan of Treatment Upcoming Encounters Date Type Department Care Team (Late st Contact Info) Description 12/15/2023 9:30 AM EDT Office Visit Urology, [facility] [address] [place] [address] [place] Dunn MD [address] [place] [address] 07/13/2024 1:00 PM EST Office Visit General Internal Medicine [facility] [address] [facility] [facility] [address] Marko Ennis MD [address] [facility] [place] [address] Scheduled Procedures Name Priority Associated Diagnoses Date/Ti me COLONOSCOPY FLEXIBLE PROXIMA L DIAGNOSTIC Recall Encounter for screening colonoscopy Health Maintenance Due Date Last Done Comments Cologuard 1998 Sigmoidoscopy 1998 Fecal Occult Blood Test 02/28/2001 02/29/2000 Depression Screening 07/13/2024 07/13/2023 GFR 07/20/2024 07/20/2023, 04/2022, 07/24/2021, Additional history exists HbA1c 07/20/2024 07/20/2023, 06/24, 07/24/2021, Additional history exists Albumin/Creatinine Ratio 07/21/2025 07/21/2022 DTaP,Tdap,and Td Vaccines (3 - Td or Tdap) 05/24/2027 05/24/2017, 06/01/2007 Colonoscopy 07/01/2028 07/01/2018, 12/09/2010 Colorectal Cancer Screening 07/01/2028 Lipid Panel 07/20/2028 07/20/2023, 06/24, 07/24/2021, Additional history exists Pneumococcal Vaccine: 65+ Years Completed 06/28/2019, 06/17/2018 Zoster Vaccines Completed 09/11/2019, 06/23, 11/30/2013 Influenza Vaccine (FLU shot) Completed 06/2023, 05/12/2022, 05/16/2021, Additional history exists COVID-19 Vaccine Completed 06/14/2023, 04/2022, 06/25/2021, Additional history exists GARDASIL-HPV IMMUNIZATION SERIES Aged Out No longer eligible based on patient's age to complete this topic Hepatitis B Aged Out No longer eligi ble based on patient's age to complete this topic MENINGOCOCCAL (MENACTRA/MENVEO) Aged Out No longer eligible based on patient's age to complete this topic documented as of this encounter Medical Devices Not on filedocumented as of this encounter Care Teams Coal Weigher Relationship Specialty Start Date End Date Marko Ennis MD [address] [facility] [place] [address] PCP - General 05/02/10 documented as of this encounter
--- OUTSIDE RECORDS SUMMARY | 2024-01-22 08:39 | External Medical Summary | Summary of Care ---
Author Name Unknown Organization [facility] Address [address] [facility] [place] [address] Phone [phone] Care Team Providers Care File Machine Operator Name Role Phone Marko Ennis MD Primary Care Provider + Reason for Visit * Reason Onset Date Comments Appointment Canceled 12/02/202312/14 appt Encounter Details Date Type Department Care Team (Late st Contact Info) Description 12/02/2023 Telephone Urology [place] [address] [place] [address] Salvador Dunn MD [address] [facility] [address] [place] [address] Appointment Canceled (12/14 appt) Allergies No known active allergiesdocumented as of this encounter (statuses as of 12/02/2023) Medications Medication Sig Dispensed Refills Start Date [...] as of this encounter (statuses as of 12/02/2023) Active Problems Problem Noted Date Diagnosed Date Prediabetes 07/23/2022 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/08/2020 Hypertension goal BP (blood pressure) < 140/90 1 08/31/2019 Thrombocytosis 09/08/2019 Mixed hyperlipidemia 02/20/2019 Elevated glucose 02/20/2019 Other male erectile dysfunction 03/03/2018 Epiretinal membrane (ERM) of left eye 07/30/2016 Overview: ICD-10 update of inactive term Allergic rhinitis 05/15/2010 documented as of this encounter (statuses as of 12/02/2023) Resolved Problems Problem Noted Date Diagnosed Date Resolved Date 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/2023 Retina disorder 07/06/2016 06/17/2018 Retinal detachment with retinal defect 07/06/2016 12/08/2018 Diverticulosis of colon 05/15/2010 07/0 08/2018 Impotence of organic origin 05/15/2010 04/08/2016 documented as of this encounter (statuses as of 12/02/2023) Immunizations Name Administration Dates Next Due COVID-19 mRNA, LNP-s, No Pre serve, 2-Dose Series (Moderna) 10/21/2020,09/17/2020 COVID-19, MRNA-LNP, 23-24, P F, 30 MCG/0.3 mL, 12 YRS AND ABOVE, IM ([facility]) 06/14/2023 COVID-19, mRNA, LNP-s, PF, B ooster, [...] on file documented as of this encounter Miscellaneous Notes * Telephone Encounter - Mariana Luna OSA - 12/02/2023 3:53 PM EDT LMTRC to reschedule Dr. Dunn appt from 12/14. Can be offered tele med clinic to clinic on 01/02 if still avavilable documented in this encounter Plan of Treatment Upcoming Encounters Date Type Department Care Team (Late st Contact Info) Description 06/20/2024 4:00 PM EDT Office Visit Urology, [facility] [address] [facility] [place] [address] [place] Dunn MD [address] [facility] [address] [place] [address] 07/13/2024 1:00 PM EST Office Visit General Internal Medicine [facility] [address] [facility] [place] [address] Marko Ennis MD [address] [facility] [address] Scheduled Procedures Name Priority Associated Diagnoses Date/Ti me COLONOSCOPY FLEXIBLE PROXIMA L DIAGNOSTIC Recall Encounter for screening colonoscopy Health Maintenance Due Date Last Done Comments Cologuard 1998 Sigmoidoscopy 1998 Fecal Occult Blood Test 02/28/2001 02/29/2000 Depression Screening 07/13/2024 07/13/2023 GFR 07/20/2024 07/20/2023, 090 04/2022, 07/24/2021, Additional history exists HbA1c 07/20/2024 07/20/2023, 112 04/2022, 07/24/2021, Additional history exists Albumin/Creatinine Ratio 07/21/2025 [...] filedocumented as of this encounter Care Teams File Machine Operator Relationship Specialty Start Date End Date Marko Ennis MD [address] [facility] [address] PCP - General 05/02/10 documented as of this encounter
--- OUTSIDE RECORDS SUMMARY | 2024-01-22 08:39 | External Medical Summary | Summary of Care ---
Author Name Unknown Organization [facility] Address [address] [place] [address] Phone [phone] Care Team Providers Care Payroll Professional Name Role Phone Marko Anderson MD Primary Care Provider + Reason for Visit * Reason Comments eRx-Medication Refill Encounter Details Date Type Department Care Team (Late st Contact Info) Description 08/20/2023 Refill General Internal Medicine [facility] [address] [facility] [place] [place] [address] Marko Anderson MD 200 [place] [address] Hypertension goal BP (blood pressure) < 140/90; BPH with obstruction/lower urinary tract symptoms; Mixed hyperlipidemia Allergies No known active allergiesdocumented as of this encounter (statuses as of 08/20/2023) Medications Medication Sig Dispensed Refills Start Date End Date Status Sildenafil Citrate 100 MG Oral TabletIndications:I mpotence of organic origin Take 1/2 tablet by mouth 1-4 hours before intercourse, no more than 1 dose in 24 hours 10 Tablet 4 3 Active Brimonidine Tartrate-Timolol 0.2-0.5 % Ophthalmic Solution (Combigan) 1 drop in both eyes in morning & 1 drop in both eyes in evening 0 3 Active Fluticasone Propionate 50 MCG/ACT Nasal Suspension (Flonase)Indication s:Allergic rhinitis due to pollen Administer 2 Sprays into each nostril daily. 48 mL 3 3 Active Tamsulosin HCl 0.4 MG Oral Capsule (Flomax)Indications :Hypertension goal BP (blood pressure) < 140/90,BPH with obstruction/lower urinary tract symptoms TAKE 2 CAPSULES IN THE MORNING 180 Capsule 3 3 Active Losartan Potassium 25 MG Oral Tablet (Cozaar)Indications :Hypertension goal BP (blood pressure) < 140/90 TAKE 1 TABLET IN THE MORNING 90 Tablet 3 3 Active Rosuvastatin Calcium 5 MG Oral Tablet (Crestor)Indication s:Mixed hyperlipidemia TAKE 1 TABLET IN THE MORNING 90 Tablet 3 3 Active Tamsulosin HCl 0.4 MG Oral Capsule (Flomax)Indications :Hypertension goal BP (blood pressure) < 140/90,BPH with obstruction/lower urinary tract symptoms Take 2 Capsules by mouth in the morning. 180 Capsule 3 3 08/20/20 23 Discontinued Rosuvastatin Calcium 5 MG Oral Tablet (Crestor)Indication s:Mixed hyperlipidemia Take 1 Tablet by mouth in the morning. 90 Tablet 3 3 08/20/20 23 Discontinued Losartan Potassium 25 MG Oral Tablet (Cozaar)Indications :Hypertension goal BP (blood pressure) < 140/90 Take 1 Tablet by mouth in the morning. 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/08/2020 Hypertension goal BP (blood pressure) < 140/90 1 08/31/2019 Thrombocytosis 09/08/2019 Mixed hyperlipidemia 02/20/2019 Elevated glucose 02/20/2019 Other male erectile dysfunction 03/03/2018 Epiretinal membrane (ERM) of left eye 07/30/2016 Overview: ICD-10 update of inactive term Allergic rhinitis 05/15/2010 documented as of this encounter (statuses as of 08/20/2023) Resolved Problems Problem Noted Date Diagnosed Date Resolved Date 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/2023 Retina disorder 07/06/2016 06/17/2018 Retinal detachment with retinal defect 07/06/2016 12/08/2018 Diverticulosis of colon 05/15/2010 07/0 08/2018 Impotence of organic origin 05/15/2010 04/08/2016 documented as of this encounter (statuses as of 08/20/2023) Immunizations Name Administration Dates Next Due COVID-19 [...] encounter Miscellaneous Notes * Telephone Encounter - Nish Scruggs [facility] - 08/20/2023 12:13 PM ESTSigned Prescriptions: Disp Refills Tamsulosin HCl 0.4 MG Oral Capsule (Flomax)180 Ca*3 Sig: TAKE 2 CAPSULES IN THE MORNINGAuthorizing Provider: MARKO ANDERSON User: NISH SANON Losartan Potassium 25 MG Oral Tablet (Coza*90 Tab*3 Sig: TAKE 1 TABLET IN THE MORNINGAuthorizing Provider: MARKO ANDERSON User: NISH SANON Rosuvastatin Calcium 5 MG Oral Tablet (Cre*90 Tab*3 Sig: TAKE 1 TABLET IN THE MORNINGAuthorizing Provider: MARKO ANDERSON User:NISH SANON documented in this encounter Plan of Treatment Upcoming Encounters Date Type Department Care Team (Late st Contact Info) Description 09/06/2023 3:00 PM EST Office Visit [facility] [place] [place] [address] [place] [address] Kelly Stapleton MD [address] [place] [address] 12/15/2023 9:30 AM EDT Office Visit Urology, [facility] [address] [facility] [place] [address] [place] Dunn MD [address] [facility] [address] [place] [address] 07/13/2024 1:00 PM EST Office Visit General Internal Medicine [facility] [address] [facility] [place] [place] [address] Marko Anderson MD [address] [place] [address] Scheduled Procedures Name Priority Associated Diagnoses Date/Ti [...] Not on filedocumented as of this encounter Visit Diagnoses Diagnosis Hypertension goal BP (blood pressure) < 140/90 Unspecified essential hypertension BPH with obstruction/lower urinary tract symptoms Hypertrophy of prostate with urinary obstruction and other lower urinary tract symptoms (LUTS) Mixed hyperlipidemia documented in this encounter Care Teams Payroll Professional Relationship Specialty Start Date End Date Marko Anderson MD [address] [place] [address] PCP - General 05/02/10 documented as of this encounter
--- OUTSIDE RECORDS SUMMARY | 2024-01-22 08:39 | External Medical Summary | Summary of Care ---
Author Name Unknown Organization [facility] Address [address] [place] [address] Phone [phone] Care Team Providers Care Fraternity Adviser Name Role Phone Marko Anderson MD Primary Care Provider + Reason for Visit * Reason Comments Follow Up Encounter Details Date Type Department Care Team (Late st Contact Info) Description 12/10/2023 10:15 AM EDT Office Visit Urology [place] [address] [facility] [address] [place] [address] Salvador Dunn MD [address] [facility] [address] [place] [address] BPH with obstruction/lower urinary tract symptoms*; Impotence Allergies No known active allergiesdocumented as of this encounter (statuses as of 12/10/2023) Medications Medication Sig Dispensed Refills Start Date [...] THE MORNING 90 Tablet 3 08/20/2023 Active Finasteride 5 MG Oral Tablet (Proscar) Take 1 Tablet by mouth in the morning. 90 Tablet 3 12/10/2023 Active documented as of this encounter (statuses as of 12/10/2023) Active Problems Problem Noted Date Diagnosed Date Prediabetes 07/23/2022 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/08/2020 Hypertension goal BP (blood pressure) < 140/90 1 08/31/2019 Thrombocytosis 09/08/2019 Mixed hyperlipidemia 02/20/2019 Elevated glucose 02/20/2019 Other male erectile dysfunction 03/03/2018 Epiretinal membrane (ERM) of left eye 07/30/2016 Overview: ICD-10 update of inactive term Allergic rhinitis 05/15/2010 documented as of this encounter (statuses as of 12/10/2023) Resolved Problems Problem Noted Date Diagnosed Date Resolved Date 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 Patient'svisit a year ago with Dr. Singletary is appreciated. PSA from last fall has risen somewhat compared tothe patient's previous baseline. Patient notes slowly deterioration of voiding over the course of time. He remains on tamsulosin 0.8 mg which he has been taking for years. Patient also feels that hissildenafil has become less effective. He has been using 50 mg dosing. Impotence: Using sildenafil with diminishing results. BPH: Patient is being seen for BPH today. He has had the following symptoms: slow stream and nocturia x 3 . Severity is moderate. He has tried tamsulosin 0.8 mg. He has previously had no surgery done. Problem has been present for years. Problem is getting worse. PSA Results: Lab Results Component Value Date/Time PSA - [facility] 2.79 05/24/2017 09:22 AM PSA - [facility] 2.30 04/08/2016 09:41 AM PSA - [facility] 2.37 03/26/2015 11:43 AM PSA SCREENING 0.54 06/02/2010 09:41 AM PSA-[facility] 3.84 07/20/2023 12:00 AM PSA-[facility] 2.54 07/21/2022 12:00 AM PSA-[facility]TS[facility] LAB 2.37 07/24/2021 12:00 AM Current Outpatient Medications Medication Sig Dispense Refill Tamsulosin HCl 0.4 MG Oral Capsule (Flomax) TAKE 2 CAPSULES IN THE MORNING 180 Capsule 3 Sildenafil Citrate 100 MG Oral Tablet Take 1/2 tablet by mouth 1-4 hours before intercourse, no more than 1 dose in 24 hours 10 Tablet 4 Brimonidine Tartrate-Timolol 0.2-0.5 % Ophthalmic Solution (Combigan) 1 drop in both eyes in morning & 1 drop in both eyes in evening Fluticasone Propionate 50 MCG/ACT Nasal Suspension (Flonase) Administer 2 Sprays into each nostril daily. 48 mL 3 Losartan Potassium 25 MG Oral Tablet (Cozaar) TAKE 1 TABLET IN THE MORNING 90 Tablet 3 Rosuvastatin Calcium 5 MG Oral Tablet (Crestor) TAKE 1 TABLET IN THE MORNING 90 Tablet 3 No current facility-administered medications for this visit. Review of patient's allergies indicates: No Known Allergies Social History: Social History Tobacco Use Smoking status: Never Smokeless tobacco: Never Substance Use Topics Alcohol use: Yes Alcohol/week: 5.8 standard drinks of alcohol Types: 7 5 oz of wine per week Comment: wine Vaping/E-Cigarette Use Vaping/E-Cigarette Substances Vaping/E-Cigarette Devices Family History Problem Relation Age of Onset No Known Problems Sister No Known Problems Sister Neurological Disorder Brother Cancer Mother lung cancer at 86 Hypertension Mother Lung Disorder Mother Heart Disorder Father Diabetes None Thyroid Disorder None Stroke None Eye Problems None Denies FH: AMD, Glaucoma, RD's or Blindness No Known Problems Grandmother (Maternal) No Known Problems Grandfather (Maternal) No Known Problems Grandmother (Paternal) Past Surgical History: Procedure Laterality Date CATARACT SURGERY,COMPLEX Bilateral [address] Pascal COLONOSCOPY, DIAGNOSTIC (RECTUM) 07/01/2018 diverticulosis, repeat 10 yrs/[facility] DENTAL SURGERY PROCEDURE NEC 1994 LASERING OF SECONDARY CATARACT Bilateral 2011 Dr[address] Pascal MISCELLANEOUS ORDER ([facility] ONLY) Bilateral 10/12/2017 Silicon Plugs, MISCELLANEOUS ORDER ([facility] ONLY) ACT 112 SIGNED 12/08/18 DR. DESAI PARTIAL REMOVAL OF EYE FLUID Left 07/07/[address] [place] [address] Desai THROAT SURGERY PROCEDURE NEC Past Medical History: Diagnosis Date Elevated glucose 02/20/2019 H/O seasonal allergies Left retinal detachment 07/07/[address] Desai Prediabetes 07/23/2022 Patient Active Problem List Diagnosis Code Allergic rhinitis J30.9 Epiretinal membrane (ERM) of left eye H35.372 Other male erectile dysfunction N52.8 Mixed hyperlipidemia E78.2 Elevated glucose R73.09 Thrombocytosis D75.839 Hypertension goal BP (blood pressure) < 140/90 I10 BPH with obstruction/lower urinary tract symptoms N40.1, N13.8 Prediabetes R73.03 Constitutional: (-) fever and (-) chills Eyes: (+) corrective lenses ENT: (-) stridor Male : see HPI Neurology: (-) negative: no focal neurologic defect Psychiatry: (-) negative: no depression or anxiety Physical Exam Nursing note reviewed. Constitutional: General: He is not in acute distress. Appearance: Normal appearance. He is not ill-appearing or toxic-appearing. HENT: Head: Normocephalic and atraumatic. Right Ear: External ear normal. Left Ear: External ear normal. Nose: Nose normal. Mouth/Throat: Mouth: Mucous membranes are moist. Eyes: Extraocular Movements: Extraocular movements intact. Cardiovascular: Pulses: Normal pulses. Pulmonary: Effort: Pulmonary effort is normal. No respiratory distress. Abdominal: Palpations: Abdomen is soft. Tenderness: There is no abdominal tenderness. Genitourinary: Comments: 70 gram prostate, smooth, no induration or nodules, no seminal vesicle abnormalities, normal rectal tone. Musculoskeletal: Cervical back: Normal range of motion and neck supple. Lymphadenopathy: Cervical: No cervical adenopathy. Skin: Coloration: Skin is not cyanotic or pale. Neurological: Mental Status: He is alert and oriented to person, place, and time. Psychiatric: Attention and Perception: Attention normal. Mood and Affect: Mood and affect normal. Impression/Plan: 68 yo male with ED, BPH, increasing PSA, recurrent LUTS. Patient can try increasing his dose of sildenafil to 100 mg. Possible side effects reviewed. Will add finasteride to his regimen. The possibility of daily dose tadalafil is reviewed, declines for now. Patient is not interested in more aggressive consideration of surgery for the time being. Seen theslow rise in his PSA will recheck in the fall. CONCHA reassuring today, possible side effects associated with finasteride are also reviewed. If the patient suffers from ill effects or insufficient therapeutic effect he can call us for sooner visit. We can consider cystoscopy for further evaluation of lower urinary tract anatomy if necessary. Above content is personally reviewed. Patient vocalizes good understanding of the treatment plan. Salvador Dunn MD 10:43 AM 12/10/2023 documented in this encounter Nursing Notes * Keturah Fowler LPN - 12/10/2023 10:21 AM EDT Chief Complaint Patient presents with Follow Up Pt presents for BPH with LUTS. Pt states he is getting up more at night to void and he has noticed that is stream is weaker as well. Pt feels empty after each void. Denies pain or blood with urination. Taking flomax documented in this encounter Plan of Treatment Upcoming Encounters Date Type Department Care Team (Late st Contact Info) Description 07/13/2024 1:00 PM EST Office Visit General Internal Medicine [facility] [address] [place] [address] Marko Anderson MD [address] [place] [address] 07/18/2024 1:30 PM EST Office Visit Urology, [facility] [address] [facility] [place] [address] Salvador Dunn MD [address] [place] [address] [place] [id number] Scheduled Orders Name Type Priority Associated Diagnoses Orde r Schedule PSA WITH FREE PSA IF INDICATED Lab Routine BPH with obstruction/lower urinary tract symptoms Expected: 06/10/2024, Expires: 12/09/2024 Scheduled Procedures Name Priority Associated Diagnoses Date/Ti [...] as of this encounter Visit Diagnoses Diagnosis BPH with obstruction/lower urinary tract symptoms- Primary Hypertrophy of prostate with urinary obstruction and other lower urinary tract symptoms (LUTS) Impotence Impotence of organic origin documented in this encounter Care Teams Fraternity Adviser Relationship Specialty Start Date End Date Marko Anderson MD [address] [place] [address] PCP - General 05/02/10 documented as of this encounter
--- OUTSIDE RECORDS SUMMARY | 2024-01-22 08:39 | External Medical Summary | Summary of Care ---
Author Name Unknown Organization [facility] Address [address] [place] [address] Phone [phone] Care Team Providers Care Drawbench Operator Name Role Phone Marko Ennis MD Primary Care Provider + Encounter Details Date Type Department Care Team (Late st Contact Info) Description 10/26/2023 Orders Only Outcomes Research Department [address] [place] [address] Leann Mclain CHRA [id number] Other*[id number] Allergies No known active allergiesdocumented as of this encounter (statuses as of 10/26/2023) Medications Medication Sig Dispensed Refills Start Date [...] as of this encounter (statuses as of 10/26/2023) Active Problems Problem Noted Date Diagnosed Date Prediabetes 07/23/2022 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/08/2020 Hypertension goal BP (blood pressure) < 140/90 1 08/31/2019 Thrombocytosis 09/08/2019 Mixed hyperlipidemia 02/20/2019 Elevated glucose 02/20/2019 Other male erectile dysfunction 03/03/2018 Epiretinal membrane (ERM) of left eye 07/30/2016 Overview: ICD-10 update of inactive term Allergic rhinitis 05/15/2010 documented as of this encounter (statuses as of 10/26/2023) Resolved Problems Problem Noted Date Diagnosed Date Resolved Date 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/2023 Retina disorder 07/06/2016 06/17/2018 Retinal detachment with retinal defect 07/06/2016 12/08/2018 Diverticulosis of colon 05/15/2010 0708/2018 Impotence of organic origin 05/15/2010 04/08/2016 documented as of this encounter (statuses as of 10/26/2023) Immunizations Name Administration Dates Next Due COVID-19 [...] 12/15/2023 9:30 AM EDT Office Visit Urology, [facility] [address] [place] [address] Salvador Dunn MD [address] [place] [address] [place] [address] 07/13/2024 1:00 PM EST Office Visit General Internal Medicine [facility] [address] [facility] [place] [address] Marko Ennis MD [address] [facility] [place] [address] Scheduled Orders Name Type Priority Associated Diagnoses Orde r Schedule MYCODE SUBSEQUENT ADULT Lab Routine [employer] Other*[id number] Every 6 Months for 2 Occurrences starting 10/26/2023 until 11/14/2024 Scheduled Procedures Name Priority Associated Diagnoses Date/Ti [...] as of this encounter Visit Diagnoses Diagnosis [employer] [facility] Other*[id number] documented in this encounter Care Teams Drawbench Operator Relationship Specialty Start Date End Date Marko Ennis MD [address] [facility] [place] [address] PCP - General 05/02/10 documented as of this encounter
--- OUTSIDE RECORDS SUMMARY | 2024-01-22 08:39 | External Medical Summary | Summary of Care ---
Author Name Unknown Organization [facility] Address [address] [place] [address] Phone [phone] Care Team Providers Care Wildlife Enforcement Major Name Role Phone Marko Anderson MD Primary Care Provider + Encounter Details Date Type Department Care Team (Late st Contact Info) Description 07/22/2023 Orders Only General Internal Medicine [facility] [address] [facility] [place] [address] Marko Anderson MD [address] [place] [address] Decreased hemoglobin*; Mixed hyperlipidemia; Prediabetes; Thrombocytosis; BPH with obstruction/lower urinary tract symptoms Allergies No known active allergiesdocumented as of this encounter (statuses as of 07/25/2023) Medications Medication Sig Dispensed Refills Start Date End Date Status Tamsulosin HCl 0.4 MG Oral Capsule (Flomax)Indications: Hypertension goal BP (blood pressure) < 140/90,BPH with obstruction/lower urinary tract symptoms Take 2 Capsules by mouth in the morning. 180 Capsule 3 09/17/2022 Active Rosuvastatin Calcium 5 MG Oral Tablet (Crestor)Indications :Mixed hyperlipidemia Take 1 Tablet by mouth in the morning. 90 Tablet 3 09/17/2022 Active Losartan Potassium 25 MG Oral Tablet (Cozaar)Indications: Hypertension goal BP (blood pressure) < 140/90 Take 1 Tablet by mouth in the morning. 90 Tablet 3 09/17/2022 Active Sildenafil Citrate 100 MG Oral TabletIndications:Im potence [...] nostril daily. 48 mL 3 05/26/2023 Active documented as of this encounter (statuses as of 07/25/2023) Active Problems Problem Noted Date Diagnosed Date Prediabetes 07/23/2022 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/08/2020 Hypertension goal BP (blood pressure) < 140/90 1 08/31/2019 Thrombocytosis 09/08/2019 Mixed hyperlipidemia 02/20/2019 Elevated glucose 02/20/2019 Other male erectile dysfunction 03/03/2018 Epiretinal membrane (ERM) of left eye 07/30/2016 Overview: ICD-10 update of inactive term Allergic rhinitis 05/15/2010 documented as of this encounter (statuses as of 07/25/2023) Resolved Problems Problem Noted Date Diagnosed Date Resolved Date 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/2023 Retina disorder 07/06/2016 06/17/2018 Retinal detachment with retinal defect 07/06/2016 12/08/2018 Diverticulosis of colon 05/15/2010 07/0 08/2018 Impotence of organic origin 05/15/2010 04/08/2016 documented as of this encounter (statuses as of 07/25/2023) Immunizations Name Administration Dates Next Due COVID-19 [...] Perfusio n F, Pf,0.5 Ml (Abrysvo) 07/13/2023 SEASONAL INFLUENZA, PF, 6 M & Above, IM , (FLULAVAL or FLUZONE) 06/17/2018,05/24/2017 Season Influenza, Quad, PF, Adjuvanted, 65+ Yrs, IM (FLUAD) 05/30/2020 Seasonal Influenza, Quadriva lent Hd (Fluzone Hd) [...] as of this encounter Miscellaneous Notes * Addendum Note - Marko Anderson MD - 07/25/2023 8:49 AM ESTAddended by: MARKO ANDERSON on: 07/25/2023 08:49 AM Modules accepted: Orders documented in this encounter Plan of Treatment Upcoming Encounters Date Type Department Care Team (Late st Contact Info) Description 12/15/2023 9:30 AM EDT Office Visit Urology, [facility] [address] [facility] [place] [address] Salvador Dunn MD 27 [facility] [address] [place] [address] 07/13/2024 1:00 PM EST Office Visit General Internal Medicine [facility] [address] [facility] [place] [address] Marko Anderson MD [facility] [place] [address] Scheduled Orders Name Type Priority Associated Diagnoses Orde r Schedule CBC WITH WBC DIFFERENTIAL Lab Routine Decreased hemoglobin Expected: 10/24/2023 (Approximate), Expires: 07/25/2024 Scheduled Procedures Name Priority Associated Diagnoses Date/Ti [...] Not on filedocumented as of this encounter Procedures Procedure Name Priority Date/Time Associated Diagnosis Comments LIPID PANEL WITH DIRECT LDL IF TG IS HIGH Routine 07/20/2023 Mixed hyperlipidemia HEMOGLOBIN A1C Routine 07/20/2023 Prediabetes COMPREHENSIVE METABOLIC PANEL Routine 07/20/2023 Mixed hyperlipidemia PSA Routine 07/20/2023 BPH with obstruction/lower urinary tract symptoms CBC Routine 07/20/2023 Thrombocytosis documented in this encounter Results * PSA (07/20/2023) PSA-OUTSIDE LAB 3.84 <=4.00 NG/ML OUTSIDE LAB (SEE SCANNED REPORT) Blood Venous blood specimen / Unknown 07/20/2023 Marko Anderson MD LAB BLOOD ORDERA BLES Performing Organization Address [facility] de Phone Number OUTSIDE LAB (SEE SCANNED REPORT) * (ABNORMAL) CBC WITH WBC DIFFERENTIAL (07/20/2023) Pathologist [facility] HEMOGLOBIN-OUT SIDE LAB 12.9(A) 13.2 - 17.1 G/DL OUTSIDE LAB (SEE SCANNED REPORT) Blood Venous blood specimen / Unknown 07/20/2023 Marko Anderson MD LAB BLOOD ORDERA BLES Performing Organization Address [facility] de Phone Number OUTSIDE LAB (SEE SCANNED REPORT) * HEMOGLOBIN A1C (07/20/2023) [facility] HEMOGLOBIN, [id number] LAB 5.5 <5.7 % OUTSIDE LAB (SEE SCANNED REPORT) Blood Venous blood specimen / Unknown 07/20/2023 Marko Anderson MD LAB BLOOD ORDERA BLES Performing Organization Address [facility] de Phone Number OUTSIDE LAB (SEE SCANNED REPORT) * COMPREHENSIVE METABOLIC PANEL (07/20/2023) Pathologist [facility] CREATININE-OUTS GIULIANA LAB 0.82 0.70 - 1.28 MG/DL OUTSIDE LAB (SEE SCANNED REPORT) EGFR-OUTSIDE LAB 94 >=60 ML/MIN/1.7 3M2 OUTSIDE LAB (SEE SCANNED REPORT) POTASSIUM-OUTSI DE LAB 4.2 3.5 - 5.3 MMOL/L OUTSIDE LAB (SEE SCANNED REPORT) GLUCOSE-OUTSIDE LAB 89 65 - 99 MG/DL OUTSIDE LAB (SEE SCANNED REPORT) ALT-OUTSIDE LAB 29 9 - 46 U/L OUT SIDE LAB (SEE SCANNED REPORT) Blood Venous blood specimen / Unknown 07/20/2023 Marko Anderson MD LAB BLOOD ORDERA BLES OUTSIDE LAB (SEE SCANNED REPORT) * (ABNORMAL) LIPID PANEL WITH DIRECT LDL IF TG IS HIGH (07/20/2023) TRIGLYCERIDES- OUTSIDE LAB 163(A) <150 MG/DL OUTSIDE LAB (SEE SCANNED REPORT) CHOLESTEROL-OU TSIDE LAB 161 <200 MG/DL OUTSIDE LAB (SEE SCANNED REPORT) HDL-OUTSIDE LAB 46 >=40 MG/DL OUTSIDE LAB (SEE SCANNED REPORT) CHOL/HDL RATIO-OUTSIDE LAB 3.5 <5.0 OUTSIDE LAB (SEE SCANNED REPORT) LDL (CALCULATED)-O UTSIDE LAB 89 <100 MG/DL OUTSIDE LAB (SEE SCANNED REPORT) Blood Venous blood specimen / Unknown 07/20/2023 Marko Anderson MD LAB BLOOD ORDERA BLES Performing Organization Address City/[facility]/ZIP Co de Phone Number OUTSIDE LAB (SEE SCANNED REPORT) documented in this encounter Visit Diagnoses Diagnosis Decreased hemoglobin- Primary Anemia, unspecified Mixed hyperlipidemia Prediabetes Other abnormal glucose Thrombocytosis Essential thrombocythemia BPH with obstruction/lower urinary tract symptoms Hypertrophy of prostate with urinary obstruction and other lower urinary tract symptoms (LUTS) documented in this encounter Care Teams Wildlife Enforcement Major Relationship Specialty Start Date End Date Marko Anderson MD [address] [place] [address] PCP - General 05/02/10 documented as of this encounter
--- OUTSIDE RECORDS SUMMARY | 2024-01-22 08:39 | External Medical Summary | Summary of Care ---
Author Name Unknown Organization [facility] Address [address] [place] [address] Phone [phone] Care Team Providers Care Reservations And Ticketing Agent Name Role Phone Marko Ennis MD Primary Care Provider + Reason for Visit * Reason Comments NEW PATIENT * Evaluate & Treat - Unlimited Visits (Within 10 days (routine)) - Pending Review Specialty Diagnoses / Procedures Referred By Brionna pelayo Referred To Contact Otolaryngology Diagnoses Nasal obstruction Nasal septal deviation Marko Ennis MD [address] [place] [id number] Kelly Stapleton MD [address] [place] [id number] Referral ID Status Reason Start Date Expiration Date Visits Requested Visits Authorized [id number] Pending Review Specialty Services Required [phone] Encounter Details Date Type Department Care Team (Late st Contact Info) Description 08/25/2023 11:20 AM EST Office Visit [facility] [address] [place] [address] Kelly Stapleton MD [address] [place] [address] [phone] Nasal obstruction*; Nasal valve collapse Allergies No known active allergiesdocumented as of this encounter (statuses as of 08/25/2023) Medications Medication Sig Dispensed Refills Start Date [...] as of this encounter (statuses as of 08/25/2023) Active Problems Problem Noted Date Diagnosed Date Prediabetes 07/23/2022 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/08/2020 Hypertension goal BP (blood pressure) < 140/90 1 08/31/2019 Thrombocytosis 09/08/2019 Mixed hyperlipidemia 02/20/2019 Elevated glucose 02/20/2019 Other male erectile dysfunction 03/03/2018 Epiretinal membrane (ERM) of left eye 07/30/2016 Overview: ICD-10 update of inactive term Allergic rhinitis 05/15/2010 documented as of this encounter (statuses as of 08/25/2023) Resolved Problems Problem Noted Date Diagnosed Date Resolved Date 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/2023 Retina disorder 07/06/2016 06/17/2018 Retinal detachment with retinal defect 07/06/2016 12/08/2018 Diverticulosis of colon 05/15/2010 07/0 08/2018 Impotence of organic origin 05/15/2010 04/08/2016 documented as of this encounter (statuses as of 08/25/2023) Immunizations Name Administration Dates Next Due COVID-19 [...] Date Smoking Tobacco: Never Smokeless Tobacco: Never Tobacco Cessation:Counseling Given: Not Answered Alcohol Use Standard Drinks/Week Comments Yes 5.8 [...] on file documented as of this encounter Last Filed Vital Signs Vital Sign Reading Time Taken Comments Blood Pressure 118/74 08/25/2023 11:08 AM EST Pulse 51 08/25/2023 11:08 AM EST Temperature 35.6 C (96 F) 08/25/2023 11:08 AM EST Respiratory Rate - - Oxygen Saturation - - Inhaled Oxygen Concentration - - Weight 88.5 kg (195 lb) 08/25/2023 11:08 AM EST Height 173.4 cm (5' 8.25") 08/25/2023 11:[address] Body Mass Index 29.43 08/25/2023 11:08 AM EST documented in this encounter Progress Notes * Kelly Stapleton MD - 08/25/2023 3:49 PM EST Otolaryngology Clinic New Patient Note CC: Cheo Nava is a 68 year old male with chief complaint of nasal obstruction. Today I had the pleasure of seeing Cheo Nava in the Department of Otolaryngology at [facility]. He is a very pleasant 68 year old male with long standing issues with nasal obstruction. He has right sided nasal obstruction. His nasal obstruction is near total, constant and unchanging. He did have a significant nasal trauma approximately 5 years ago, no medical attention at that time. CT scan shows severe deviation of the nasal septum as well as right middle turbinate guadalupe bullosa. No previous nasal surgery. He has used nasal steroid spray daily for > 4 weeks without any improvement in his nasal breathing. Previous history of nasal surgery no Use of anticoagulants: no History of LINDSEY: no Imaging: Ct sinus: IMPRESSION Nasal septal deviation and middle turbinate guadalupe bullosa with prominent turbinate mucosa caliber resulting in mild nasal cavity narrowing. Past Medical History: Diagnosis Date Elevated glucose 02/20/2019 H/O seasonal allergies Left retinal detachment 07/07/[address] Desai Prediabetes 07/23/2022 Past Surgical History: Procedure Laterality Date CATARACT SURGERY,COMPLEX Bilateral [address] Pascal COLONOSCOPY, DIAGNOSTIC (RECTUM) 07/01/2018 diverticulosis, repeat 10 yrs/[facility] DENTAL SURGERY PROCEDURE NEC 1994 LASERING OF SECONDARY CATARACT Bilateral 2011 Dr[address] Pascal MISCELLANEOUS ORDER ([facility] ONLY) Bilateral 10/12/2017 Silicon Plugs, MISCELLANEOUS ORDER ([facility] ONLY) ACT 112 SIGNED 12/08/18 DR. DESAI PARTIAL REMOVAL OF EYE FLUID Left 07/07/[address] [place] [address] Desai THROAT SURGERY PROCEDURE NEC Social History Socioeconomic History Marital status: Spouse name: Not on file Number of children: 2 Years of education: Not on file Highest education level: Not on file Occupational History Occupation: proffessor Employer: [employer] [id number] Tobacco Use Smoking status: Never Smokeless tobacco: Never Substance and Sexual Activity Alcohol use: Yes Alcohol/week: 5.8 standard drinks of alcohol Types: 7 5 oz of wine per week Comment: wine Drug use: No Sexual activity: Yes Partners: Female Comment: no history of STD's Other Topics Concern Not on file Social History Narrative Not on file Social Determinants of Health Financial Resource Strain: Not on file Food Insecurity: No Food Insecurity (01/25/2023) Hunger Vital Sign Worried About Running Out of Food in the Last Year: Never true Ran Out of Food in the Last Year: Never true Transportation Needs: Not on file Physical Activity: Not on file Stress: Not on file Social Connections: Not on file Intimate Partner Violence: Not on file Housing Stability: Not on file Family History Problem Relation Age of Onset [...] Grandfather (Maternal) No Known Problems Grandmother (Paternal) ROS: General: negative Eyes: negative Cardiac/Vascular: negative Respiratory: negative GI: negative : negative MSK: negative Mental Health: negative Skin: negative Neurologic: negative Endocrine: negative Blood/Lymphatic: negative Allergic: negative Physical Exam: BP 118/74 | Pulse 51 | Temp 35.6 C (96 F) | Ht 1.734 m (5' 8.25") | Wt 88.5 kg (195 lb) | BMI 29.43 kg/m | BSA 2.06 m Gen: Examination revealed a cooperative male in no acute distress with normal affect Head: Examination was normal with no obvious traumatic deformities. Chin has adequate projection. Eyes: Examination revealed equal, round and reactive pupils with extraocular muscles intact. Nose: Examination revealed a midline nasal dorsum on frontal view. The nasal tip was midline. On profile view he has adequate height of the radix, no dorsal hump, adequate projection. Palpation of the nasal tip shows severe lack of nasal tip support. Base view demonstrated asymmetric nostrils. Intranasal exam demonstrated severe deviation of the anterior nasal septum to the right blocking the nasal cavity >90%. He has significant narrowing of the internal nasal valve right >> left. He has bilateral external nasal valve collapse, improved with pedrito maneuver. Turbinates were enlargedbilaterally. Skin: Examination of the skin revealed no concerning lesions. Lymphatics: There were no palpable lymph nodes in the posterior triangle, submandibular triangle, jugulodigastric region, or central neck. Endocrine: Examination revealed no parotid masses or thyromegaly Neuro: Examination revealed normal movement of the facial nerve Pulm: Examination revealed no distressed or labored breathing. Impression: 68 year old male with nasal obstruction, nasoseptal deviation and nasal valve collapse. Plan: Cheo Nava has nasal obstruction, nasoseptal deviation, and nasal valve collapse, and has failedmedical management and needs surgical correction. Cheo Nava has prolonged persistent nasal obstruction. This is well documented in the patient's history and previous attempts at medical management. Cheo Nava has significant obstruction of the nasal airway documented on the physical exam. Due to the level of airway obstruction the patient will need intranasal grafting to assist with straightening of the nasal septum. Cheo Nava has significant nasal obstruction with chronic long standing nasal obstruction and severe difficulty with breathing. Cheo Nava has used nasal steroid spray for > 4 weks consecutively and without any improvement thus making the nasal obstruction refractory to medical management. Cheo Nava has significant obstruction of bilateral nares as documented on CT scan, findings above Due to all of the above issues regarding her structural nasal deformity, degree of deviation and distortion of the nasal septum, to repair the deformity, he will need an open septorhinoplasty (CPT #64302). Septoplasty alone will not address the deformity because surgical repair with require placement of intranasal grafting such as candle pourer grafts, iliana grafts, septal extension grafts, caudal septal iliana grafts and/or lateral crural strut grafts to repair, straighten and reconstruct the deviated nasal septum and improve the nasal obstruction. The bony nasal dorsum may need to be addressed as well to further straighten the nose to assist with improvement of the nasal obstruction via possible medial and lateral osteotomies. Intranasal grafting may also be required to correct the nasal deformity, using [place] nasal cartilage may be used for intranasal grafting but may require auricular cartilage graft (CPT #04527) or use of homograft rib may be necessary. The inferior turbinates will n eed to be addressed as well (CPT #26059). Will also need reduction of right guadalupe bullosa (CPT 91539) Risks, benefits, complications and convalescence were discussed with the patient. Risks include butare not limited to bleeding, infection, septal hematoma, septal abscess, septal perforation, nasal synechia, nasal deformity and nasal obstruction. All questions were answered and consent was obtained. Date of surgery: TBD call to schedule SORU: no Kelly Stapleton MD documented in this encounter Nursing Notes * Shereen Holland MED ASSIST - 08/25/2023 3:54 PM EST Educated patient on pre-op and post op instructions Answered patients questions Took photos documented in this encounter Plan of Treatment Upcoming Encounters Date Type Department Care Team (Late st Contact Info) Description 12/15/2023 9:30 AM EDT Office Visit Urology, [facility] [address] [place] [address] Salvador Dunn MD [address] [place] [place] [address] 07/13/2024 1:00 PM EST Office Visit General Internal Medicine [facility] [address] [place] [address] Marko Ennis MD [address] [place] [address] Scheduled Orders Name Type Priority Associated Diagnoses Orde r Schedule EKG EKG Routine Nasal obstruction Nasal valve collapse Expected: 08/25/2023 (Approximate), Expires: 09/25/2024 COMPREHENSIVE METABOLIC PANEL Lab Routine Nasal obstruction Nasal valve collapse Expected: 11/24/2023 (Approximate), Expires: 08/25/2024 Scheduled Procedures Name Priority Associated Diagnoses Date/Ti me COLONOSCOPY FLEXIBLE PROXIMA L DIAGNOSTIC Recall Encounter for screening colonoscopy Health Maintenance Due Date Last Done Comments Cologuard 1998 Sigmoidoscopy 1998 Fecal Occult Blood Test 02/28/2001 02/29/2000 Depression Screening 07/13/2024 07/13/2023 GFR 07/20/2024 07/20/2023, 09/0 04/2022, 07/24/2021, Additional history exists HbA1c 07/20/2024 [...] as of this encounter Visit Diagnoses Diagnosis Nasal obstruction- Primary Other diseases of nasal cavity and sinuses Nasal valve collapse Other diseases of nasal cavity and sinuses documented in this encounter Care Teams Reservations And Ticketing Agent Relationship Specialty Start Date End Date Marko Ennis MD [address] [place] [address] PCP - General 05/02/10 documented as of this encounter
--- OUTSIDE RECORDS SUMMARY | 2024-01-22 08:39 | External Medical Summary | Summary of Care ---
Author Name Unknown Organization [facility] Address [address] [place] [address] Phone [phone] Care Team Providers Care Post Graduate Intern Name Role Phone Marko Ennis MD Primary Care Provider + Encounter Details Date Type Department Care Team (Late st Contact Info) Description 11/23/2023 Result Scan Unspecified Department <No scans attached> Allergies No known active allergiesdocumented as of this encounter (statuses as of 11/26/2023) Medications Medication Sig Dispensed Refills Start Date [...] as of this encounter (statuses as of 11/26/2023) Active Problems Problem Noted Date Diagnosed Date Prediabetes 07/23/2022 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/08/2020 Hypertension goal BP (blood pressure) < 140/90 1 08/31/2019 Thrombocytosis 09/08/2019 Mixed hyperlipidemia 02/20/2019 Elevated glucose 02/20/2019 Other male erectile dysfunction 03/03/2018 Epiretinal membrane (ERM) of left eye 07/30/2016 Overview: ICD-10 update of inactive term Allergic rhinitis 05/15/2010 documented as of this encounter (statuses as of 11/26/2023) Resolved Problems Problem Noted Date Diagnosed Date Resolved Date 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 [address] [place] [address] Salvador Dunn MD [address] [facility] [address] [place] [address] 07/13/2024 1:00 PM EST Office Visit General Internal Medicine [facility] [address] [facility] [place] [address] Marko Ennis MD [address] [facility] [place] [address] Scheduled Procedures Name Priority Associated Diagnoses Date/Ti [...] Procedure Name Priority Date/Time Associated Diagnosis Comments PROCEDURE SCANNED RESULT 11/23/2023 documented in this encounter Results * PROCEDURE SCANNED RESULT (11/23/2023) 11/23/2023 No Physician Data Unknown SURGERY documented in this encounter Care Teams Post Graduate Intern Relationship Specialty Start Date End Date Marko Ennis MD [address] [place] [address] PCP - General 05/02/10 documented as of this encounter
[2024-01-22] MEDS ORDERED: ENALAPRILAT 0.625 MG in DEXTROSE 5% 25 ML IV PRN ×2 (09:52→10:00)
[2024-01-22] MEDS: BRIMONIDINE TARTRATE/TIMOLOL OP SCH (14:09)
--- NOTE | 2024-01-22 15:54 | Hospitalist Progress Note ---
Date of Service January 22, 2024 Assessment & Plan (1) Acute diverticulitis of intestine: Plan: This is a 68-year-old male with PMH of hypertension, BPH, thrombocytosis, hyperlipidemia, prediabetes and other medical problems listed below who presents with lower abdominal pain x 2 days and found to have acute sigmoid diverticulitis with pericolonic abscess as well as lyme disease. Diverticulitis of intestine with perforation and abscess--POA --CT ABD:Perforated acute sigmoid diverticulitis demonstrated by trace pneumoperitoneum. There is an associated 1.8 cm pericolonic abscess at the mid sigmoid colon. This is not amenable to percutaneous drainage due to its small size. Surgical consultation recommended. Trace bilateral pleural effusions. Left-sided nephrolithiasis. No hydronephrosis. -- Blood cultures pending --Continue IV Zosyn, IV fluids, bowel rest Appreciate surgery input Pain control No acute surgical intervention needed at this time as per surgery Will need outpatient colonoscopy in 6 to 8 weeks with GI (2) Lyme disease: Plan: Denies any recent tick bite Lyme IgG, IgM positive Continue IV doxycycline for now (3) HTN (hypertension): Plan: Hold losartan while n.p.o. IV Vasotec as needed Monitor BP (4) BPH (benign prostatic hyperplasia): Plan: Resume home tamsulosin and finasteride as able Bladder scan as needed (5) Hyperlipidemia: Plan: Resume statin as able Distal left renal artery aneurysm Incidental finding on CT --CT showed:A partially calcified 8 mm distal left renal artery aneurysm. Follow-up as outpatient DVT Px: SCDs for now Code status: FULL CODE Admission and Anticipated Discharge Date Admission Date: January 21, 2024 Subjective Patient is seen and examined at bedside Less abdominal pain today Offers no other complaints Denies any nausea, vomiting, chest pain, dyspnea Also denies any recent tick bite Review of Systems Review of Systems: All systems reviewed & are unremarkable except as noted in Subjective Physical Exam Physical Exam: Physical Exam: Vitals signs as noted above General Appearance:Moderately built and nourished, no apparent distress Head: normocephalic, Atraumatic Eyes: normal inspection, EOMI Neck: supple, Trachea midline Respiratory/Chest: Normal breath sounds, CTA, No accessory muscle use Cardiovascular: S1, S2, No murmur Abdomen/GI:Soft, RLQ tender, mild distention, bowel sounds present Extremities/Musculoskeletal:normal inspection, no edema Neurologic/Psych:AAOX3, grossly no focal neurological deficits Skin: normal color, warm Results & Data Results & Data Vital Signs (Past 12 Hours) Vital Signs Temp Pulse Pulse Resp BP Pulse Ox O2 Del Method 01/22/24 11:17 36.9 C 70 20 114/70 97 Room Air 01/22/24 08:00 83 01/22/24 07:22 36.9 C 79 17 145/83 H 97 Room Air Laboratory Results Short CBC 01/22/24 Range/Units 05:35 WBC 12.12 H (4.8-10.8) K/ul Hgb 12.3 L (14.0-18.0) g/dl Hct 36.9 L (42.0-52.0) % Plt Count 403 H (130-400) K/uL BMP 01/22/24 05:35 Sodium 137 Potassium 3.5 Chloride 106 Carbon Dioxide 24 BUN 10 Creatinine 0.92 Glucose 123 H Calcium 8.5 L Liver Function 01/22/24 Range/Units 05:35 Total Bilirubin 1.4 H (0.2-1.0) mg/dl AST 17 (13-39) U/L ALT 20 (7-52) U/L Alkaline Phosphatase 54 (34-104) U/L Albumin 3.6 (3.4-5.0) gm/dl
--- NOTE | 2024-01-22 15:55 | Surgery Progress Note ---
Date of Service January 22, 2024 Assessment & Plan (1) Diverticulitis of intestine with perforation and abscess: Plan 68 y/o M with 1st episode of acute diverticulitis. CT yesterday revealed b/l pleural effusions and upper sigmoid colitis with 1.8cm abscess. Small area of adjacent pneumoperitoneum. Afebrile, VSS, feeling improved today. Leukocytosis improving from 16,000- 12,000 today. No acute surgical intervention Admitted to medicine for conservative management Continue NPO with chips Maintain IVF and IV antibiotics. Patient on Zosyn May have chemical DVT ppx, encouraged ambulation IV analgesics and IV antiemetics as needed F/U am labs Will f/u in the am Admission and Anticipated Discharge Date Admission Date: January 21, 2024 Subjective Patient was seen and examined this am. He does admit to feeling some decrease in LLQ abdominal pain. States he is not passing flatus and had a watery BM today. He denies: N/V, feeling fevers or chills. Tolerates ice chips Physical Exam Constitutional: healthy appearing; not ill appearing, not in distress and not diaphoretic Respiratory: normal respiratory effort; no respiratory distress, no labored breathing and does not use accessory muscles Cardiovascular: Rate/Rhythm: regular rate; not tachycardic Gastrointestinal (Abdomen): Inspection/Auscultation: abdomen not distended Percussion/Palpation: + abdomen tender (mild TTP lower aspect of the RUQ where inflamed colon is note on CT) and abdomen soft; no guarding (mild, voluntary, no rebound) Results & Data Vital Signs (Past 12 Hours) Vital Signs Temp Pulse Pulse Resp BP Pulse Ox O2 Del Method 01/22/24 11:17 36.9 C 70 20 114/70 97 Room Air 01/22/24 08:00 83 01/22/24 07:22 36.9 C 79 17 145/83 H 97 Room Air Results Complete Blood Count Results: RBC 4.12 M/uL (4.70-6.10) L 01/22/24 WBC 12.12 K/ul (4.8-10.8) H 01/22/24 Hgb 12.3 g/dl (14.0-18.0) L 01/22/24 Hct 36.9 % (42.0-52.0) L 01/22/24 Plt Count 403 K/uL (130-400) H 01/22/24 PG Care Time/CCT Total # of Minutes Spent Total Time Spent with Patient: Total time spent is greater than 50% in coordination of care (as documented) at patient's floor/unit and/or counseling patient: Coding [place] [address] SUB INP/OBS CARE 09/16MIN Patient Type Established History Problem Focused Exam Expanded Problem Focused Diagnoses Diverticulitis of intestine with perforation and abscess K57.20 Diverticulitis bleeding: without bleeding Diverticulitis site: large intestine (1) Diverticulitis of intestine with perforation and abscess Diverticulitis bleeding: without bleeding Diverticulitis site: large intestine Qualified Code(s): K57.20 - Diverticulitis of large intestine with perforation and abscess without bleeding
--- OUTSIDE RECORDS SUMMARY | 2024-01-22 19:44 | External Medical Summary | Summary of Care ---
Author Name Unknown Organization [facility] Address [address] [place] [address] Phone [phone] Care Team Providers Care Plastic Process Technician Name Role Phone Marko Ennis MD Primary Care Provider + Reason for Visit * Reason Onset Date Comments Encounter Created in Error 01/21/2024 Encounter Details Date Type Department Care Team (Late st Contact Info) Description 01/21/2024 Telephone General Internal Medicine [facility] [address] [place] [address] Marko Ennis MD [address] [place] [address] Encounter Created in Error Allergies No known active allergiesdocumented as of this encounter (statuses as of 01/21/2024) Medications Medication Sig Dispensed Refills Start Date [...] 1 drop in both eyes in evening 11/28/2022 Active Fluticasone Propionate 50 MCG/ACT Nasal [...] as of this encounter (statuses as of 01/21/2024) Active Problems Problem Noted Date Diagnosed Date Prediabetes 07/23/2022 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/08/2020 Hypertension goal BP (blood pressure) < 140/90 1 08/31/2019 Thrombocytosis 09/08/2019 Mixed hyperlipidemia 02/20/2019 Elevated glucose 02/20/2019 Other male erectile dysfunction 03/03/2018 Epiretinal membrane (ERM) of left eye 07/30/2016 Overview: ICD-10 update of inactive term Allergic rhinitis 05/15/2010 documented as of this encounter (statuses as of 01/21/2024) Resolved Problems Problem Noted Date Diagnosed Date Resolved Date 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/2023 Retina disorder 07/06/2016 06/17/2018 Retinal detachment with retinal defect 07/06/2016 12/08/2018 Diverticulosis of colon 05/15/2010 07/0 08/2018 Impotence of organic origin 05/15/2010 04/08/2016 documented as of this encounter (statuses as of 01/21/2024) Immunizations Name Administration Dates Next Due COVID-19 mRNA, LNP-s, No Pre serve, 2-Dose Series (Moderna) 10/21/2020,09/17/2020 COVID-19, MRNA-LNP, 23-24, P F, 30 MCG/0.3 mL, 12 YRS AND ABOVE, IM ([facility]) 06/14/2023 COVID-19, mRNA, LNP-s, PF, B [...] 06/28/2019 TDAP (age 10 and older)(Boostrix) 05/24/2017 TDAP, Age 7 and older, IM (Adacel) 06/01/2007 Varicella Zoster Vaccine (Adult) 11/30/2013 Zoster [...] encounter Miscellaneous Notes * Telephone Encounter - Tori Fajardo OSA - 01/21/2024 9:57 AM EDT error documented in this encounter Plan of Treatment Upcoming Encounters Date Type Department Care Team (Late st Contact Info) Description 07/13/2024 1:00 PM EST Office Visit General Internal Medicine [facility] [address] [facility] [place] [address] Marko Ennis MD [address] [facility] [place] [address] 07/18/2024 1:30 PM EST Office Visit Urology, [facility] [address] [facility] [place] [address] Salvador Dunn MD [address] [facility] [address] [place] [address] Scheduled Procedures Name Priority Associated Diagnoses Date/Ti me COLONOSCOPY FLEXIBLE PROXIMA L DIAGNOSTIC Recall Encounter for screening colonoscopy Health Maintenance Due Date Last Done Comments Cologuard 1998 Sigmoidoscopy 1998 Fecal Occult Blood Test 02/28/2001 02/29/2000 COVID-19 Vaccine ( season) 2023 06/14/2023, 07/01/2022, 06/25/2021, Additional history exists Depression Screening 07/13/2024 07/13/2023 GFR 07/20/2024 07/20/2023, 09/0 04/2022, 07/24/2021, Additional history exists HbA1c 07/20/2024 07/20/2023, 2 04/2022, 07/24/2021, Additional history exists Albumin/Creatinine Ratio 07/21/2025 07/21/2022 DTaP,Tdap,and Td Vaccines (3 - Td or Tdap) 05/24/2027 05/24/2017, 06/01/2007 Colonoscopy 07/01/2028 07/01/2018, 12/09/2010 Colorectal Cancer Screening 07/01/2028 Lipid Panel 07/20/2028 07/20/2023, 06/24, 07/24/2021, Additional history exists Pneumococcal Vaccine: 65+ Years Completed 06/28/2019, 06/17/2018 Zoster Vaccines Completed 09/11/2019, 06/23, 11/30/2013 Influenza Vaccine (FLU shot) Completed 06/2023, 05/12/2022, 05/16/2021, Additional history exists GARDASIL-HPV IMMUNIZATION SERIES Aged [...] filedocumented as of this encounter Care Teams Plastic Process Technician Relationship Specialty Start Date End Date Marko Ennis MD [address] [place] [address] PCP - General 05/02/10 documented as of this encounter
[2024-01-23 06:40] LABS: Hematocrit (blood only) 36.3 % (42.0-52.0); Hemoglobin 11.9 g/dl (14.0-18.0); Mean Corpuscular Hgb Conc 32.8 g/dL (32.0-36.0); Mean Corpuscular Volume 88.3 fL (80.0-100.0); Mean Platelet Volume 9.3 fL (9.4-12.4); Platelet Count 412 K/uL (130-400); RDW Standard Deviation 45.2 fL (36.4-46.3); Red Blood Count 4.11 M/uL (4.70-6.10); White Blood Count 10.56 K/ul (4.8-10.8)
[2024-01-23 07:32] LABS: Albumin Globulin Ratio 1.3 (0.9-2); Albumin Level 3.4 gm/dl (3.4-5.0); BUN Creatinine Ratio 10.4 (10-20); Bilirubin,Total 1.2 mg/dl (0.2-1.0); Calcium 8.4 mg/dl (8.6-10.3); Creatinine Clr Calc Pharmacy 70.1 ml/min; Est GFR (African American) 92.4 ml/min; Est GFR (Non-African American) 79.8 ml/min; Globulin 2.6 gm/dl (2.5-4.0); Magnesium 1.7 mg/dl (1.7-2.4); Potassium 3.4 mmol/L (3.5-5.1)
[2024-01-23] MEDS: POTASSIUM CHLORIDE / WTR 10 MEQ/100 ML PLCT IV SCH (09:20)
--- NOTE | 2024-01-23 13:00 | Surgery Progress Note ---
<Statement entered by Kristine Yañez, - 01/23/24 13:14> I have seen and examined this patient with the surgical PA, I agree with this plan Date of Service January 23, 2024 Assessment & Plan (1) Diverticulitis of intestine with perforation and abscess: Plan 68 y/o M with 1st episode of acute diverticulitis. Afebrile, VSS, feeling improved today. WBC within normal limits today. No acute surgical intervention Will advance Cheo to clar liquids today. Maintain IVF and IV antibiotics. Patient on Zosyn May have chemical DVT ppx and may resume PO home medications. Encouraged ambulation IV analgesics and IV antiemetics as needed F/U am labs Patient seen and examined with Dr. Yañez. Admission and Anticipated Discharge Date Admission Date: January 21, 2024 Subjective Cheo is resting in bed with at bedside. He notes that he is feeling much improved today. He does admit to continued abdominal pain, but only when he presses his abdomen. He states that getting in and out of bed has become less painful. He did start on some ice chips this morning. He denies any nausea or vomiting. He does state that he had several episodes of diarrhea since we saw him yesterday. Review of Systems Constitutional: as per Subjective / HPI; no fever and no chills Respiratory: as per Subjective / HPI; no cough, no chest congestion and no dyspnea on exertion Gastrointestinal: + abdominal pain (only with palpation. ) ; no nausea and no vomiting Physical Exam Constitutional: healthy appearing; not ill appearing, not in distress and not diaphoretic Respiratory: normal respiratory effort; no respiratory distress, no labored breathing and does not use accessory muscles Cardiovascular: Rate/Rhythm: regular rate; not tachycardic Gastrointestinal (Abdomen): Inspection/Auscultation: abdomen not distended Percussion/Palpation: + abdomen tender (mild TTP lower aspect of the RUQ where inflamed colon is note on CT) and abdomen soft; no guarding (mild, voluntary, no rebound) Results & Data Vital Signs (Past 12 Hours) Vital Signs Temp Pulse Pulse Resp BP BP Pulse Ox 01/23/24 12:01 37.0 C 63 18 142/83 H 95 01/23/24 07:55 36.9 C 72 16 156/87 H 96 01/23/24 07:26 36.9 C 71 16 148/83 H 96 01/23/24 07:00 74 01/23/24 02:33 36.8 C 77 16 161/81 H 95 O2 Del Method 01/23/24 12:01 Room Air 01/23/24 07:55 Room Air 01/23/24 07:26 Room Air 01/23/24 07:00 01/23/24 02:33 Room Air PG Care Time/CCT Total # of Minutes Spent Total Time Spent with Patient: Total time spent is greater than 50% in coordination of care (as documented) at patient's floor/unit and/or counseling patient: Coding Level of Care Code 67355 SUB INP/OBS CARE MIN Diagnoses Diverticulitis of intestine with perforation and abscess K57.20 Diverticulitis bleeding: without bleeding Diverticulitis site: large intestine (1) Diverticulitis of intestine with perforation and abscess Diverticulitis bleeding: without bleeding Diverticulitis site: large intestine Qualified Code(s): K57.20 - Diverticulitis of large intestine with perforation and abscess without bleeding
[2024-01-23] MEDS: TAMSULOSIN HCL 0.4 MG CAP PO SCH (14:19)
[2024-01-23] MEDS: ADVANCED PROBIOTIC 625 MG CAPSULE PO SCH (14:19)
[2024-01-23] MEDS: FINASTERIDE 5 MG TAB PO SCH (14:19)
[2024-01-23] MEDS: LOSARTAN POTASSIUM 25 MG TAB PO SCH (14:19)
--- NOTE | 2024-01-23 15:57 | Hospitalist Progress Note ---
Date of Service January 23, 2024 Assessment & Plan (1) Acute diverticulitis of intestine: Plan: This is a 68-year-old male with PMH of hypertension, BPH, thrombocytosis, hyperlipidemia, prediabetes and other medical problems listed below who presents with lower abdominal pain x 2 days and found to have acute sigmoid diverticulitis with pericolonic abscess as well as lyme disease. Diverticulitis of intestine with perforation and abscess--POA --CT ABD:Perforated acute sigmoid diverticulitis demonstrated by trace pneumoperitoneum. There is an associated 1.8 cm pericolonic abscess at the mid sigmoid colon. This is not amenable to percutaneous drainage due to its small size. Surgical consultation recommended. Trace bilateral pleural effusions. Left-sided nephrolithiasis. No hydronephrosis. -- Blood cultures pending --Continue IV Zosyn, IV fluids Appreciate surgery input Pain control No acute surgical intervention needed at this time as per surgery Will need outpatient colonoscopy in 6 to 8 weeks with GI Started on clear liquid diet today Will obtain stool studies if diarrhea persists (2) Lyme disease: Plan: Denies any recent tick bite Lyme IgG, IgM positive Continue IV doxycycline for now Transition to p.o. doxycycline as able (3) HTN (hypertension): Plan: Restarted losartan . IV Vasotec as needed Monitor BP (4) BPH (benign prostatic hyperplasia): Plan: Continue tamsulosin and finasteride Bladder scan as needed (5) Hyperlipidemia: Plan: Resume statin as able Distal left renal artery aneurysm Incidental finding on CT --CT showed:A partially calcified 8 mm distal left renal artery aneurysm. Follow-up as outpatient DVT Px: Heparin SQ Code status: FULL CODE Admission and Anticipated Discharge Date Admission Date: January 21, 2024 Subjective Patient is seen and examined at bedside Abdominal pain better today Had loose BMs today Denies any nausea, vomiting, chest pain, dyspnea No other complaints Review of Systems Review of Systems: All systems reviewed & are unremarkable except as noted in Subjective Physical Exam Physical Exam: Physical Exam: Vitals signs as noted above General Appearance:Moderately built and nourished, no apparent distress Head: normocephalic, Atraumatic Eyes: normal inspection, EOMI Neck: supple, Trachea midline Respiratory/Chest: Normal breath sounds, CTA, No accessory muscle use Cardiovascular: S1, S2, No murmur Abdomen/GI:Soft, RLQ tender, mild distention, bowel sounds present Extremities/Musculoskeletal:normal inspection, no edema Neurologic/Psych:AAOX3, grossly no focal neurological deficits Skin: normal color, warm Results & Data Results & Data Vital Signs (Past 12 Hours) Vital Signs Temp Pulse Pulse Resp BP BP Pulse Ox 01/23/24 15:00 71 01/23/24 12:01 37.0 C 63 18 142/83 H 95 01/23/24 07:55 36.9 C 72 16 156/87 H 96 01/23/24 07:26 36.9 C 71 16 148/83 H 96 01/23/24 07:00 74 O2 Del Method 01/23/24 15:00 01/23/24 12:01 Room Air 01/23/24 07:55 Room Air 01/23/24 07:26 Room Air 01/23/24 07:00 Laboratory Results Short CBC 01/23/24 Range/Units 06:01 WBC 10.56 (4.8-10.8) K/ul Hgb 11.9 L (14.0-18.0) g/dl Hct 36.3 L (42.0-52.0) % Plt Count 412 H (130-400) K/uL BMP 01/23/24 06:01 Sodium 138 Potassium 3.4 L Chloride 105 Carbon Dioxide 24 BUN 10 Creatinine 0.96 Glucose 99 Calcium 8.4 L Liver Function 01/23/24 Range/Units 06:01 Total Bilirubin 1.2 H (0.2-1.0) mg/dl AST 13 (13-39) U/L ALT 16 (7-52) U/L Alkaline Phosphatase 55 (34-104) U/L Albumin 3.4 (3.4-5.0) gm/dl
[2024-01-23] MEDS: HEPARIN SOD 5,000 UNIT/0.5 ML VIAL SQ SCH (21:07)
[2024-01-24 07:12] LABS: Hematocrit (blood only) 35.6 % (42.0-52.0); Hemoglobin 11.8 g/dl (14.0-18.0); Mean Corpuscular Hemoglobin 29.3 pg (25.0-34.0); Mean Corpuscular Hgb Conc 33.1 g/dL (32.0-36.0); Mean Corpuscular Volume 88.3 fL (80.0-100.0); Mean Platelet Volume 8.9 fL (9.4-12.4); Platelet Count 402 K/uL (130-400); RDW Coefficient of Variation 13.9 % (11.5-14.5); RDW Standard Deviation 45.2 fL (36.4-46.3); Red Blood Count 4.03 M/uL (4.70-6.10); White Blood Count 7.03 K/ul (4.8-10.8)
[2024-01-24 07:44] LABS: BUN Creatinine Ratio 8.1 (10-20); Calcium 8.4 mg/dl (8.6-10.3); Creatinine Clr Calc Pharmacy 86.8 ml/min; Est GFR (African American) 101.8 ml/min; Est GFR (Non-African American) 87.9 ml/min; Potassium 3.5 mmol/L (3.5-5.1)
--- NOTE | 2024-01-24 11:12 | Surgery Progress Note ---
Date of Service January 24, 2024 Assessment & Plan (1) Diverticulitis of intestine with perforation and abscess: Plan Patient has progressed quite well. Admission CT revealed sigmoid diverticulitis with a small 1.8cm pericolic abscess. He has been afebrile since admission, and leukocytosis WNL the past two days. Recommend advance to full liquids. Consider low fiber diet for dinner and discharge to home with outpatient antibiotics Call my office should pain not remain completely resolved towards the end of the oral antibiotic course Otherwise, follow up with his PCP and/ or surgery as needed Needs colonoscopy 6-8 weeks after discharge Surgery will sign off at this time. If patient remains in the hospital and new concerns arise, please reconsult. Admission and Anticipated Discharge Date Admission Date: January 21, 2024 Subjective I have seen and examined this patient this am. He feels good, without pain, nausea, fevers or chills and is tolerating clear liquid diet. Is having BMs and passing flatus. Physical Exam Constitutional: healthy appearing; not ill appearing, not in distress and not diaphoretic Respiratory: normal respiratory effort; no respiratory distress, no labored breathing and does not use accessory muscles Gastrointestinal (Abdomen): Soft nontender Results & Data Vital Signs (Past 12 Hours) Vital Signs Temp Pulse Pulse Resp BP Pulse Ox O2 Del Method 01/24/24 07:38 37.1 C 64 18 163/90 H 94 Room Air 01/24/24 07:35 Room Air 01/24/24 07:12 56 L 01/24/24 02:24 36.8 C 70 16 158/87 H 94 Room Air 01/23/24 23:46 Room Air Results Complete Blood Count Results: RBC 4.03 M/uL (4.70-6.10) L 01/24/24 WBC 7.03 K/ul (4.8-10.8) 01/24/24 Hgb 11.8 g/dl (14.0-18.0) L 01/24/24 Hct 35.6 % (42.0-52.0) L 01/24/24 Plt Count 402 K/uL (130-400) H 01/24/24 PG Care Time/CCT Total # of Minutes Spent Total Time Spent with Patient: Total time spent is greater than 50% in coordination of care (as documented) at patient's floor/unit and/or counseling patient: Coding Level of Care Code 65626 SUB INP/OBS CARE 09/16MIN Diagnoses Diverticulitis of intestine with perforation and abscess K57.20 Diverticulitis bleeding: without bleeding Diverticulitis site: large intestine (1) Diverticulitis of intestine with perforation and abscess Diverticulitis bleeding: without bleeding Diverticulitis site: large intestine Qualified Code(s): K57.20 - Diverticulitis of large intestine with perforation and abscess without bleeding
--- NOTE | 2024-01-24 13:22 | Hospitalist Progress Note ---
Date of Service January 24, 2024 Assessment & Plan (1) Acute diverticulitis of intestine: Plan: This is a 68-year-old male with PMH of hypertension, BPH, thrombocytosis, hyperlipidemia, prediabetes and other medical problems listed below who presents with lower abdominal pain x 2 days and found to have acute sigmoid diverticulitis with pericolonic abscess as well as lyme disease. Diverticulitis of intestine with perforation and abscess--POA --CT ABD:Perforated acute sigmoid diverticulitis demonstrated by trace pneumoperitoneum. There is an associated 1.8 cm pericolonic abscess at the mid sigmoid colon. This is not amenable to percutaneous drainage due to its small size. Surgical consultation recommended. Trace bilateral pleural effusions. Left-sided nephrolithiasis. No hydronephrosis. -- Blood cultures pending --Continue IV Zosyn, IV fluids>> transition to oral antibiotics on discharge Appreciate surgery input: conservative managemebt Pain control Will need outpatient colonoscopy in 6 to 8 weeks with GI Advance to full liquid diet today Needs follow-up with surgery on discharge Plan to be discharged home today (2) Lyme disease: Plan: Denies any recent tick bite Lyme IgG, IgM positive Continue IV doxycycline for now Transition to p.o. doxycycline on discharge (3) HTN (hypertension): Plan: Restarted losartan . IV Vasotec as needed Monitor BP (4) BPH (benign prostatic hyperplasia): Plan: Continue tamsulosin and finasteride Bladder scan as needed (5) Hyperlipidemia: Plan: Resume statin as able Distal left renal artery aneurysm Incidental finding on CT --CT showed:A partially calcified 8 mm distal left renal artery aneurysm. Follow-up as outpatient DVT Px: Heparin SQ Code status: FULL CODE Disposition Home Admission and Anticipated Discharge Date Admission Date: January 21, 2024 Subjective Patient is seen and examined at bedside Abdominal pain continues to improve Tolerating current diet Discussed with surgery today Offers no other complaints Denies any nausea, vomiting, chest pain, dyspnea Plan to be discharged home today Review of Systems Review of Systems: All systems reviewed & are unremarkable except as noted in Subjective Physical Exam Physical Exam: Physical Exam: Vitals signs as noted above General Appearance:Moderately built and nourished, no apparent distress Head: normocephalic, Atraumatic Eyes: normal inspection, EOMI Neck: supple, Trachea midline Respiratory/Chest: Normal breath sounds, CTA, No accessory muscle use Cardiovascular: S1, S2, No murmur Abdomen/GI:Soft, RLQ tender, mild distention, bowel sounds present Extremities/Musculoskeletal:normal inspection, no edema Neurologic/Psych:AAOX3, grossly no focal neurological deficits Skin: normal color, warm Results & Data Results & Data Vital Signs (Past 12 Hours) Vital Signs Temp Pulse Pulse Resp BP Pulse Ox O2 Del Method 01/24/24 11:19 36.5 C 60 18 136/83 96 Room Air 01/24/24 07:38 37.1 C 64 18 163/90 H 94 Room Air 01/24/24 07:35 Room Air 01/24/24 07:12 56 L 01/24/24 02:24 36.8 C 70 16 158/87 H 94 Room Air Laboratory Results Short CBC 01/24/24 Range/Units 06:49 WBC 7.03 (4.8-10.8) K/ul Hgb 11.8 L (14.0-18.0) g/dl Hct 35.6 L (42.0-52.0) % Plt Count 402 H (130-400) K/uL BMP 01/24/24 06:49 Sodium 139 Potassium 3.5 Chloride 106 Carbon Dioxide 25 BUN 7 Creatinine 0.86 Glucose 105 H Calcium 8.4 L
--- NOTE | 2024-01-24 13:29 | Discharge Summary ---
Date of Service January 24, 2024 Admission HPI Per Admitting Provider This is a 68-year-old male with PMH of hypertension, BPH, thrombocytosis, hyperlipidemia, prediabetes and other medical problems listed below who presents with lower abdominal pain x 2 days. Abdominal pain is described as right lower quadrant pain that is dull and worse with movement. Denies any associated nausea, vomiting or diarrhea. Endorses normal appetite and bowel movements. No melena or hematochezia. [place] [employer] [place] yesterday and had to leave early, prompting concern for his health and evaluation in the ED today. Also endorses feeling fatigued for 2 weeks with dull headache. Denies any rash or joint pain. Lives in in a [facility]. Denies any known tick bites or rash. No recent medication changes. No chest pain, shortness of breath, dysuria. Admission Exam Per Admitting Provider General Appearance: WD/WN, vitals as above, NAD, sitting up in bed, pleasant, conversing easily Head: normocephalic, atraumatic Eyes: normal inspection, PERRL, conjunctivae normal, anicteric sclerae ENT: external ear and nose normal, oropharynx normal Neck: normal visual inspection, trachea midline, no thyromegaly Respiratory: normal respiratory effort, lungs clear to auscultation, no wheeze, rales, rhonchi. No accessory muscle use Cardiovascular: regular rate, rhythm, no murmur, normal peripheral pulses, no BLE edema. Vessels: no JVD Chest: normal inspection of chest Abdomen/GI: normal bowel sounds, soft, TTP throughout abdomen most significant in RLQ, mildly distended Extremities/Musculoskeletal: no cyanosis or clubbing, extremities motor strength 5/5 Neurologic: PERRL, EOMI, accommodation nl, no face palsy, no dysarthria, CN's II-XI intact bilaterally and moves all extremities Psychiatric: A+Ox3, euthymic affect Skin: no rashes, normal color, warm/dry Principal Diagnosis Diverticulitis of intestine with perforation and abscess Lyme disease Discharge Data Allergies Allergy/AdvReac Type Severity Reaction Status Date / Time No Known Allergies Allergy Verified 01/21/24 09:57 Consultations 01/21/24 12:29 Consult General Surgery Routine ED Decision to Admit Stat Procedures Performed Laboratory Results WBC 7.03 K/ul (4.8-10.8) 01/24/24 06:49 RBC 4.03 M/uL (4.70-6.10) L 01/24/24 06:49 Hgb 11.8 g/dl (14.0-18.0) L 01/24/24 06:49 Hct 35.6 % (42.0-52.0) L 01/24/24 06:49 MCV 88.3 fL (80.0-100.0) 01/24/24 06:49 MCH 29.3 pg (25.0-34.0) 01/24/24 06:49 MCHC 33.1 g/dL (32.0-36.0) 01/24/24 06:49 RDW Std Deviation 45.2 fL (36.4-46.3) 01/24/24 06:49 RDW Coeff of Harman 13.9 % (11.5-14.5) 01/24/24 06:49 Plt Count 402 K/uL (130-400) H 01/24/24 06:49 MPV 8.9 fL (9.4-12.4) L 01/24/24 06:49 Immature Gran % (Auto) 0.7 % 01/21/24 09:17 Neut % (Auto) 85.4 % 01/21/24 09:17 Lymph % (Auto) 8.9 % 01/21/24 09:17 [place] % (Auto) 4.6 % 01/21/24 09:17 Eos % (Auto) 0.2 % 01/21/24 09:17 Baso % (Auto) 0.2 % 01/21/24 09:17 Neut # (Auto) 13.68 K/uL (1.40-6.50) H 01/21/24 09:17 Lymph # (Auto) 1.42 K/uL (1.20-3.40) 01/21/24 09:17 [place] # (Auto) 0.73 K/uL (0.11-0.59) H 01/21/24 09:17 Eos # (Auto) 0.03 K/uL (0.00-0.50) 01/21/24 09:17 Baso # (Auto) 0.04 K/uL (0.00-0.20) 01/21/24 09:17 Immature Gran # (Auto) 0.12 K/uL (0.01-0.20) 01/21/24 09:17 Sodium 139 mmol/L (136-145) 01/24/24 06:49 Potassium 3.5 mmol/L (3.5-5.1) 01/24/24 06:49 Chloride 106 mmol/L (98-107) 01/24/24 06:49 Carbon Dioxide 25 mmol/L (21-32) 01/24/24 06:49 Anion Gap 8 (3-11) 01/24/24 06:49 BUN 7 mg/dl (6-23) 01/24/24 06:49 Creatinine 0.86 mg/dl (0.6-1.4) 01/24/24 06:49 Est Cr Clr Drug Dosing 86.8 ml/min 01/24/24 06:49 Est GFR ( Amer) 101.8 ml/min 01/24/24 06:49 Est GFR (Non-Af Amer) 87.9 ml/min 01/24/24 06:49 BUN/Creatinine Ratio 8.1 (10-20) L 01/24/24 06:49 Glucose 105 mg/dl (70-99(Fasting)) H 01/24/24 06:49 Calcium 8.4 mg/dl (8.6-10.3) L 01/24/24 06:49 Magnesium 1.7 mg/dl (1.7-2.4) 01/23/24 06:01 Total Bilirubin 1.2 mg/dl (0.2-1.0) H 01/23/24 06:01 AST 13 U/L (13-39) 01/23/24 06:01 ALT 16 U/L (7-52) 01/23/24 06:01 Alkaline Phosphatase 55 U/L (34-104) 01/23/24 06:01 Troponin I High Sens 5.4 pg/ml (0-20) 01/21/24 09:17 Total Protein 6.0 gm/dl (6.0-8.3) 01/23/24 06:01 Albumin 3.4 gm/dl (3.4-5.0) 01/23/24 06:01 Globulin 2.6 gm/dl (2.5-4.0) 01/23/24 06:01 Albumin/Globulin Ratio 1.3 (0.9-2) 01/23/24 06:01 TSH 1.457 uIu/ml (0.300-4.500) 01/21/24 09:17 Urine Color Yellow 01/21/24 10:16 Urine Appearance Clear (Clear) 01/21/24 10:16 Urine pH 8.5 (4.5-7.5) H 01/21/24 10:16 Ur Specific [place] 1.016 (1.000-1.030) 01/21/24 10:16 Urine Protein Negative (Negative) 01/21/24 10:16 Urine Glucose (UA) Negative (Negative) 01/21/24 10:16 Urine Ketones Negative (Negative) 01/21/24 10:16 Urine Blood Negative (Negative) 01/21/24 10:16 Urine Nitrite Negative (Negative) 01/21/24 10:16 Urine Bilirubin Negative (Negative) 01/21/24 10:16 Urine Urobilinogen Negative (Negative) 01/21/24 10:16 Ur Leukocyte Esterase Negative (Negative) 01/21/24 10:16 Anaplasma Smear See Comment 01/21/24 09:17 Babesia Smear See Comment 01/21/24 09:17 Lyme Disease Screen Positive (Negative) H 01/21/24 09:17 Lyme Disease IgG Ab Positive (Negative) H 01/21/24 09:17 Lyme Disease IgM Ab Positive (Negative) H 01/21/24 09:17 SARS-CoV-2, RNA, NAAT NEGATIVE (NEGATIVE) 01/21/24 10:19 Impressions Abdomen/Pelvis CT 01/21/24 08:[address] WITH IV CONTRAST CT DOSE: 1230.06 mGy.cm HISTORY: RLQ pain, urinary symptoms, fatigue TECHNIQUE: Multiaxial CT images of the abdomen and pelvis were performed following the use of intravenous contrast. A dose lowering technique was utilized adhering to the principles of ALARA. COMPARISON STUDY: None. FINDINGS: There are trace bilateral pleural effusions. Bibasilar linear densities favor subsegmental atelectasis. There are few punctate foci of pneumoperitoneum within the left subdiaphragmatic location. Therefore, this is consistent with a bowel perforation. This is secondary to the acute diverticulitis at the mid sigmoid colon. This is demonstrated by focal thickening within the mid sigmoid colon with pericolonic fat stranding and a 1.8 cm pericolonic abscess best seen image 228. There is a punctate focus of extraluminal gas also adjacent to the mid sigmoid colon consistent with the area of perforation. No evidence for bowel obstruction. Normal appendix. Small hiatus hernia. Multiple scattered hypodense lesions seen throughout the liver measuring approximately 4.7 cm. These likely represent cysts. The spleen, adrenal glands, pancreas, and gallbladder are unremarkable. There are few small bilateral renal hypodense lesions with the majority of these measure subcentimeter in short axis diameter. Therefore, these are detected too small to characterize but statistically represent cysts. There is a punctate nonobstructing stone within the left kidney. No ureteral stones. No hydronephrosis. 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 The main portal vein is patent. Calcified plaque within the normal caliber abdominal aorta. No retroperitoneal or pelvic lymphadenopathy. No pelvic free fluid. The prostate gland is mildly enlarged. Normal bladder. IMPRESSION: 1. Perforated acute sigmoid diverticulitis demonstrated by trace pneumoperitoneum. There is an associated 1.8 cm pericolonic abscess at the mid sigmoid colon. This is not amenable to percutaneous drainage due to its small size. Surgical consultation recommended. 2. Trace bilateral pleural effusions. 3. Left-sided nephrolithiasis. No hydronephrosis. 4. 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 5. Additional findings as described above. ACT 112: Negative or not required by law. Electronically signed by: Stan Romero M.D. 01/21/2024 11:52 AM Ordered Studies 01/21/24 08:58 CT abd pelvis IV con only Stat Hospital Course (1) Acute diverticulitis of intestine: This is a 68-year-old male with PMH of hypertension, BPH, thrombocytosis, hyperlipidemia, prediabetes and other medical problems listed below who presents with lower abdominal pain x 2 days and found to have acute sigmoid diverticulitis with pericolonic abscess as well as lyme disease. Diverticulitis of intestine with perforation and abscess--POA --CT ABD:Perforated acute sigmoid diverticulitis demonstrated by trace pneumoperitoneum. There is an associated 1.8 cm pericolonic abscess at the mid sigmoid colon. This is not amenable to percutaneous drainage due to its small size. Surgical consultation recommended. Trace bilateral pleural effusions. Left-sided nephrolithiasis. No hydronephrosis. -- Blood cultures pending --Continue IV Zosyn, IV fluids>> transition to oral antibiotics on discharge Appreciate surgery input: conservative managemebt Pain control Will need outpatient colonoscopy in 6 to 8 weeks with GI Advance to full liquid diet today Needs follow-up with surgery on discharge Plan to be discharged home today (2) Lyme disease: Denies any recent tick bite Lyme IgG, IgM positive Continue IV doxycycline for now Transition to p.o. doxycycline on discharge (3) HTN (hypertension): Restarted losartan . 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 Follow-up as outpatient DVT Px: Heparin SQ Code status: FULL CODE Disposition Home Total Time Total Time Spent Total Time Spent (In Minutes): 57 minutes Discharge Plan Discharge Items Patient Disposition: Home - Self-Care Reason For Visit: DIVERTICULITIS WITH ABSCESS Discharge Diagnosis: Diverticulitis of intestine with perforation and abscess Lyme disease Activity: Per Instructions section Exercise/Sports: Wait until after follow-up appointment Non-emergency contact: Primary Care Provider and Surgeon Call non-emergency contact if: you have any medication questions, your symptoms worsen, your pain is concerning for you and you have a fever Follow-up/Referrals: Marko Ennis MD [Primary Care Provider] - Kristine Yañez DO [Physician] - (you may call the office if you have ongoing pain after your course of antibiotics have been completed) Diet: Low Fiber Addtl Attending Provider Instructions: Follow-up with your primary care physician Dr. Ennis in 1 week Follow-up with your surgeon Dr. Yañez as recommended -- Complete the antibiotic course Augmentin, doxycycline as prescribed --Your surgeon recommends to get colonoscopy in 6 to 8 weeks as outpatient --Continue low fiber diet for now. Further instructions as per your primary care physician/surgeon Seek immediate medical attention if your symptoms reoccur or worsen Please take all medications as instructed on discharge list below. Please call if you have any questions or problems. You can reach a [facility] [address] hospitalist on duty at [facility] 24 hours a day by calling [phone] Pending Studies at Discharge: Yes Studies:: blood cultures Stand-Alone Forms: [facility], Smoking Cessation Medications and DC Order Prescriptions: New Advanced Probiotic 625 mg (10 billion cell) Capsule 1 cap PO DAILY Qty: 15 0RF doxycycline monohydrate 100 mg capsule 100 mg PO BID Qty: 15 0RF amoxicillin-pot clavulanate 875-125 mg tablet 1 tab PO BID Qty: 15 0RF Continued sildenafil [Viagra] 50 mg Tablet 50 mg PO DAILY PRN (Reason: Sexual Activity) fluticasone propionate [Flonase Allergy Relief] 50 mcg/actuation [place],Suspension 2 spray INTRANASAL QAM latanoprost 0.005 % drops 1 drp OPB HS tamsulosin 0.4 mg capsule 0.8 mg PO QAM losartan 25 mg tablet 25 mg PO DAILY rosuvastatin 5 mg tablet 5 mg PO DAILY brimonidine-timolol 0.2-0.5 % drops 1 drp OPB BID finasteride 5 mg tablet 5 mg PO DAILY Discharge Orders: Discharge Order (Routine); Ordered 01/24/24 Ordered By: Sinan Macdonald Admission Data Admit Date/Time: 01/21/24 13:09 Attending Provider: Sinan Macdonald Admit Provider: Sarbjit Khan Primary Care Provider: Marko Ennis Other Providers: Sarbjit Khan; Kristine Yañez
[2024-01-26 04:42] LABS: Babesia microti DNA Not Detected (Not Detected)
[2024-01-26 13:08] LABS: Ehrlichia chaff DNA Bld Negative (Negative)
== END 2024-01-24 15:27 | disposition home or self-care (01) | DRG 392 ==
LOC: ED 08:43 → EDINP 13:09 → SUATTDRO 13:09 → 2N 18:39